=== PATIENT | female | born 1945 | race Caucasian/White ===

== ENCOUNTER → 2020-05-02 08:06 | Outpatient (BNVA) | payer MEDICARE, SELFPAY | PROVIDERS: Visit Provider Obstetrics & Gynecology | DX: Z01.419 Encounter for gynecological examination (general) (routine) without abnormal findings (principal); Z85.828 Personal history of other malignant neoplasm of skin; Z85.819 Personal history of malignant neoplasm of unspecified site of lip, oral cavity, and pharynx | CPT/HCPCS: 99203 ==

== ENCOUNTER 2021-11-20 08:12 | Outpatient (REF) | payer MEDICARE, SELFPAY ==
--- NOTE | ~2021-11-20 | XR_ITS ---
EXAMINATION: XR CHEST CLINICAL INFORMATION: Chest pain COMPARISON: None TECHNIQUE: 2 views of the chest were obtained. FINDINGS: The lungs are hyperinflated but clear of acute process. Heart size and pulmonary vascularity is normal. There is mild dextro scoliosis dorsal lumbar spine and moderate spondylosis dorsal spine. No lytic process seen. XR/XR chest 2V IMPRESSION: Hyperinflated lungs without acute process.
[2021-11-20 11:38] LABS: MANUAL DIFF FLAG NO
[2021-11-20 12:06] LABS: Basophils Absolute Auto 0.1 X10*3/uL (0.0-0.2); Basophils Percent Auto 0.8 % (0-2); Eosinophils Absolute Auto 0.8 X10*3/uL (0.0-0.4); Eosinophils Percent Auto 10.8 % (0-4); Imm Gran Abs Auto 0.01 X10*3/uL (0.00-0.03); Imm Gran Pct Auto 0.1 % (0.0-0.4); Lymphocytes Absolute Auto 2.2 X10*3/uL (1.2-4.9); Lymphocytes Percent Auto 29.3 % (20-40); Mean Corpuscular HGB Conc 32.5 g/dl (31.0-35.0); Mean Corpuscular Hemoglobin 32.3 pg (27.0-33.0); Mean Corpuscular Volume 99.3 fL (80.0-98.0); Mean Platelet Volume 9.9 fL (9.4-12.3); Monocytes Absolute Auto 0.5 X10*3/uL (0.1-1.2); Monocytes Percent Auto 6.7 % (2-11); Neutrophils Absolute Auto 3.9 x10*3/uL (2.0-8.3); Neutrophils Percent Auto 52.3 % (45-73); Platelet Count 297 X10*3/uL (160-400); Red Blood Count 4.03 X10*6/uL (4.20-5.50); White Blood Count 7.5 X10*3/uL (4.8-10.8)
[2021-11-20 12:29] LABS: Appearance Urine CLEAR; Color Urine YELLOW; Glucose Urine UA NEG (NEG); Leukocyte Esterase Urine NEG (NEG); Nitrite Urine NEG (NEG); PH 6.5 (5.0-8.0); UACC Culture Trigger NO; Urine Blood TRACE (NEG); Urine Ketones NEG (NEG); Urine Protein NEG (NEG-TRACE)
[2021-11-20 12:40] LABS: Alanine Aminotransferase 16 U/L (0-31); Albumin Level 4.2 g/dL (3.5-5.0); Alkaline Phosphatase 76 U/L (39-117); Anion Gap 10 (12-20); Aspartate Amino Transferase 23 U/L (5-31); Bilirubin Total 0.7 mg/dL (0.0-1.0); Blood Urea Nitrogen 15 mg/dL (9-16); Carbon Dioxide 27 mmol/L (22-29); Chloride 102 mmol/L (96-108); Cholesterol 183 mg/dL; Estimated Glomerular Filt Rate > 60; Glucose Fasting 99 mg/dL (60-99); HDL Cholesterol 76 mg/dL; LDL Cholesterol Calculated 94 mg/dl; Potassium 4.1 mmol/L (3.3-5.1); Sodium 135 mmol/L (135-145); TSH reflex Free T4 1.54 uIU/mL (0.32-4.0); Total Protein 6.9 g/dL (6.5-8.0); Triglycerides 69 mg/dL; Vitamin D 25-OH Total 41.3 ng/mL (>30)
[2021-11-20 12:45] LABS: Folate > 20.0 ng/mL (> or = 4.0); Vitamin B12 916 pg/mL (200-900)
[2021-11-20 13:53] LABS: WBC Urine 0 /HPF (0-4)
== END 2021-11-20 08:13 | disposition home or self-care (01) ==
LOC: HO.HMGCLDS 08:12
PROVIDERS: Visit Provider Internal Medicine
DX: Z00.00 Encounter for general adult medical examination without abnormal findings (principal); R07.89 Other chest pain; E55.9 Vitamin D deficiency, unspecified; E53.8 Deficiency of other specified B group vitamins
CPT/HCPCS: 36415; 71046; 80053; 80061; 81001; 81003; 82306; 82607; 82746; 84443; 85025

== ENCOUNTER 2022-02-13 14:36 | Outpatient (REF) | payer MEDICARE, SELFPAY ==
--- NOTE | 2022-02-13 17:15 | PFT_ITS ---
INDICATION: Chest pain. SPIROMETRY: FEV1 to FVC is 56% with an FEV1 of 1.43 L, which is 69% predicted; an FVC of 2.58 L, which is 93% predicted. Post bronchodilators, there was improvement of the FEV1 by 13%. The maximum voluntary ventilation 51% predicted. LUNG VOLUMES: Total lung capacity 94% predicted. DIFFUSION CAPACITY: DLCO 58% predicted. COMPARISONS: None. INTERPRETATION: There is an obstructive ventilatory defect consistent with moderate COPD. The patient did have a significant response to bronchodilators noted and also has significant small airways disease. There is some moderate decrease in maximum voluntary ventilation, which could be secondary to deconditioning. Lung volumes are within normal limits, and the patient does have a moderate diffusion impairment secondary to emphysema and all the parenchymal lung conditions should be considered. Clinical correlation warranted. MD JACQUI Sagastume/MODL / [id number]
== END 2022-02-13 14:37 | disposition home or self-care (01) ==
LOC: HO.RESP 14:36
PROVIDERS: PCP Internal Medicine; Visit Provider Internal Medicine
DX: R07.89 Other chest pain (principal); R06.00 Dyspnea, unspecified
CPT/HCPCS: 94060; 94727; 94729

== ENCOUNTER → 2022-12-18 13:27 | Outpatient (BNVA) | payer MEDICARE, SELFPAY | PROVIDERS: PCP Internal Medicine; Visit Provider Internal Medicine | DX: Z12.11 Encounter for screening for malignant neoplasm of colon (principal) | CPT/HCPCS: 99202 ==

== ENCOUNTER 2022-12-31 11:12 | Outpatient (REF) | payer MEDICARE, SELFPAY ==
--- NOTE | ~2022-12-31 | XR_ITS ---
EXAMINATION: XR SHOULDER, RIGHT CLINICAL INFORMATION: Pain in the right shoulder COMPARISON: None available. TECHNIQUE: AP external rotation, Grashey, scapular Y, and axillary views of the right shoulder. FINDINGS: The bones and soft tissues are normal. No fracture. Glenohumeral and acromioclavicular alignment is anatomic with normal joint space. No abnormal soft tissue calcifications. XR/XR shoulder RT min 2V IMPRESSION: Normal right shoulder.
== END 2022-12-31 11:13 | disposition home or self-care (01) ==
LOC: HO.HMGCX 11:12
PROVIDERS: PCP Internal Medicine; Visit Provider Internal Medicine
DX: M25.511 Pain in right shoulder (principal)
CPT/HCPCS: 73030

== ENCOUNTER 2023-03-12 08:02 | Outpatient (AMB) | payer MEDICARE, SELFPAY ==
--- NOTE | 2023-03-12 08:21 | AM.OFFWIN_ITS ---
Intake Vital Signs 03/12/23 08:24 Weight 100 lb BP 120/80 Blood Pressure Location Rt brachial Position Sitting Pulse 65 Pulse Source Pulse Oximeter Pulse Oximetry (%) 95 Oxygen Delivery Method Room Air Intake Visit Reasons: EST/right shoulder pain Intake Note: Patient here for right shoulder and arm pain. she states her pcp ordered an xray which showed possible arthritis. she has been taking a lot of ibuprofen. Patient Tobacco Use Status: Never used Tobacco Allergies Seasonal Allergies Allergy (Mild, Verified 03/12/23 08:51) Unknown Medication List - Last Reconciled 03/12/23 by Garfield Curtis MD albuterol sulfate 90 mcg/actuation 2 puffs inhalation Q6H PRN kulylkk-tzuyewveqezrv-hzixtvxk 250-250-65 mg (Excedrin Migraine) 2 tabs PO Q6H PRN cyclobenzaprine 5 mg PO BEDTIME 7 days fluticasone propionate 50 mcg/actuation 2 sprays intranasal DAILY PRN melatonin 3 mg PO BEDTIME PRN zolpidem 10 mg PO BEDTIME PRN 10 days Do you need a note to return to daycare/school/sports/work: No HPI EST/right shoulder pain HPI Details 77-year-old female presents to the office for a sick visit. Patient is could having right shoulder pain. She was seen 3 months ago for neck pain and x-rays had shown arthritis. Pain symptoms have restarted in the past week. She did not re-injure or fall. Pain is limited to the right side of the neck, shoulder and upper arm. Morning stiffness present. She has been taking tssb-nfp-zkvrnql NSAIDs with minimal relief. [facility] Medical History Allergic rhinitis COPD (chronic obstructive pulmonary disease) GERD (gastroesophageal reflux disease) History of mouth cancer History of skin cancer Hx of ovarian cyst Insomnia Surgical History History of colonoscopy (~05/07/08) Hx of ovarian cystectomy Status post surgical removal of malignant neoplasm of skin Family History Father HTN (hypertension) Sister HTN (hypertension) Social History Housing: Apartment Alcohol intake: never Patient Tobacco Use Status: Never used Tobacco e-Cigarette/Vaping Use: Never Used Second Hand Smoke Exposure: Yes service: No Current occupational status: retired Cognitive needs: No Hearing needs: No Vision needs: No Female Reproductive History Menstrual Age of Menarche: 13 Physical Exam Vital Signs: Last Vital Signs Pulse 65 03/12/23 08:24 BP 120/80 03/12/23 08:24 Pulse Ox 95 03/12/23 08:24 Oxygen Delivery Method Room Air 03/12/23 08:24 Const General: cooperative and healthy appearing Nutritional Appearance: well nourished Orientation/consciousness: patient oriented x3 Limitations: no limitations HEENT Head: Yes normal to inspection Eyes General: appearance normal, both eyes and all related structures Neck Neck: Yes normal visual inspection Chest Chest palpation & inspection: normal palpation of entire chest wall Resp Effort & Inspection: normal respiratory effort Neuro General: patient oriented x3 Extrem Other: Right shoulder: Full range of motion. Flexion, extension, internal and external rotation, adduction and abduction of the arm at the shoulder level was complete with no pain. Assessment & Plan Assessment & Plan (1) Osteoarthritis of right shoulder: Code(s): M19.011 - Primary osteoarthritis, right shoulder Plan: Meloxicam added to the regimen. Patient was advised physical therapy. If symptoms do not improve to follow-up here. Coding Level of Care Code Est Pt Level 4 (08432) Diagnoses Osteoarthritis of right shoulder M19.011
[2023-03-12 08:24] VITALS: BP 120/80; PULSE 65; O2SAT 95
== END 2023-03-12 09:56 | disposition home or self-care (01) ==
PROVIDERS: PCP Internal Medicine; Visit Provider Internal Medicine
DX: M19.011 Primary osteoarthritis, right shoulder (principal)
CPT/HCPCS: 99214

== ENCOUNTER 2023-04-15 12:50 | Outpatient (AMB) | payer MEDICARE, SELFPAY ==
[2023-04-15 12:51] VITALS: BP 120/82; PULSE 66; O2SAT 98; BMI 17.9
--- NOTE | 2023-04-15 12:51 | MHC.PC.OV ---
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 Accompanied by: Self / Same As Patient Allergies Seasonal Allergies Allergy (Mild, Verified 04/15/23 13:25) Unknown Medication List - Last Reconciled 04/15/23 by Ascencion Stiles MD albuterol sulfate 90 mcg/actuation 2 puffs inhalation Q6H PRN pgbhvxk-xbxuhcvyuxymg-hbegexqk 250-250-65 mg (Excedrin Migraine) 2 tabs PO Q6H PRN cyclobenzaprine 5 mg PO BEDTIME 7 days fluticasone propionate 50 mcg/actuation 2 sprays intranasal DAILY PRN melatonin 12 mg PO BEDTIME PRN meloxicam 15 mg PO DAILY PRN zolpidem 10 mg PO BEDTIME PRN 10 days Tobacco use date assessed: 04/15/23 Fall risk assessment: No Falls in past year Last assessed Fall Risk: 04/15/23 Dental Screening Dental Screen Date: 04/15/23 Did you have a dental visit in the last 12 months?: Yes Did you have a dental problem in the last 6 months where you did not have access to dental care?: No Was dental information given to patient?: Patient has dentist HPI 6 MONTH F/U HPI Details Patient comes in today for her follow up visit States that she was experiencing recurrent right-sided neck pain and right shoulder pain for the past few weeks Went to the walk-in clinic last month for the same complaint and she was prescribed some Meloxicam, which she states helped somewhat States that her right shoulder / neck pain has been slowly improving and she has not had any flare up of her symptoms at all today and is hoping that whatever was causing her shoulder and neck symptoms has finally subsided States that she feels okay otherwise Still has trouble sleeping at night but her current Rx help - needs her Zolpidem Rx refilled Would also like to get Rx for Polytrim Abx eyedrops - states that she starts using this right away as soon as she has problems with her eyes and this tends to help keep her eye symptoms from progressing She denies any headaches or dizziness Denies any chest pains, no SOB No nausea/vomiting, no abdominal pain No change in bowel habits noted Has not done any of her follow up labs prior to her appt today [facility] Medical History COPD (chronic obstructive pulmonary disease) Insomnia Allergic rhinitis GERD (gastroesophageal reflux disease) History of skin cancer History of mouth cancer Hx of ovarian cyst Surgical History History of colonoscopy (~05/07/08) Status post surgical removal of malignant neoplasm of skin Hx of ovarian cystectomy Family History Father HTN (hypertension) Sister HTN (hypertension) Social History Housing: Apartment Alcohol intake: never Patient Tobacco Use Status: Never used Tobacco e-Cigarette/Vaping Use: Never Used Second Hand Smoke Exposure: Yes service: No Current occupational status: retired Cognitive needs: No Hearing needs: No Vision needs: No Female Reproductive History Menstrual Age of Menarche: 13 Questionnaire PHQ-9 Over the last 2 weeks, how often have you been bothered by any of the following problems? 1. Little interest or pleasure in doing things: not at all 2. Feeling down, depressed, or hopeless: not at all 3. Trouble falling or staying asleep, or sleeping too much: not at all 4. Feeling tired or having little energy: not at all 5. Poor appetite or overeating: not at all 6. Feeling bad about yourself - or that you are a failure or have let yourself or your family down: not at all 7. Trouble concentrating on things, such as reading the newspaper or watching television: not at all 8. Moving or speaking so slowly that other people could have noticed. Or the opposite - being so fidgety or restless that you have been moving around a lot more than usual: not at all 9. Thoughts that you would be better off or of hurting yourself in some way: not at all Total score: 0 Depression Screening Interpretation: Negative 87149 - PHQ-9 Billing: Yes Source: Developed by Drs. Trenton L. Frances Gomez Kurt Kroenke and colleagues, with an educational margareth from [employer]. Thrive Questionnaire Date Thrive assessed: 04/15/23 I am a: Patient What is your living situation today?: I have a steady place to live Within the past 12 months, did the food you bought not last and you didn't have the money to get more?: Never true Within the past 12 months, did you worry whether your food would run out before you got money to buy more?: Never true Do you have trouble paying for medicines?: No Do you have trouble getting transportation to medical appointments?: No Do you have trouble paying your heating and electricity bill?: No Do you have trouble taking care of your child, family member or friend?: No Do you have trouble with day-to-day activities such as bathing, preparing meals, shopping, managing finances, etc.?: No Are you currently unemployed and looking for a job?: No Are you interested in more education?: No Please select the resources that you would like help with: None Currently or been in a relationship where the following occur: no concerns reported AUDIT C Alcohol Use Questionnaire (AUDIT-C) 1. How often do you have a drink containing alcohol?: Never 3. How often do you have six or more drinks on one occasion?: Never Total Score: 0 Score Reviewed/Action Taken: Yes CARINA-7 AMB Questionnaire CARINA-7 Date CARINA - 7 assessed: 04/15/23 Feeling nervous, anxious, or on edge: 0 = Not at all Not being able to stop or control worryin = Not at all Worrying too much about different things: 0 = Not at all Trouble relaxin = Not at all Being so restless that it is hard to sit still: 0 = Not at all Becoming easily annoyed or irritable: 0 = Not at all Feeling afraid as if something awful might happen: 0 = Not at all Total CARINA-7 score (0-4 normal; 5-9 mild; 10-14 moderate; 15-21 severe): 0 Source: Developed by Drs. Trenton Gomez, Sergo Castillo and colleagues, with an educational margareth from [employer]. Review of Systems Const Denies chills, Reports difficulty sleeping (at times), Denies fatigue, Denies fever(s) and Denies headache(s) ENT Denies dysphagia, Denies dizziness, Denies otalgia, Denies headache(s), Denies neck pain (recent right-sided neck pain appears to have resolved), Denies odynophagia and Denies sore throat Card Denies chest pain, Denies palpitations and Denies dyspnea Resp Denies cough and Denies dyspnea GI Denies abdominal pain, Denies constipation, Denies dysphagia, Denies heartburn, Denies diarrhea, Denies nausea, Denies odynophagia and Denies vomiting Denies difficulty voiding, Denies nocturia and Denies dysuria Musc Denies arthralgias (recent right shoulder pain also appears to have resolved) and Denies neck pain (recent right-sided neck pain appears to have resolved) Skin/Breast Denies rash Neuro Denies dizziness and Denies headache(s) Endo Denies fatigue and Denies palpitations Physical exam (Primary Care) Vital Signs: Last Vital Signs Pulse 66 04/15/23 12:51 BP 120/82 04/15/23 12:51 Pulse Ox 98 04/15/23 12:51 Oxygen Delivery Method Room Air 04/15/23 12:51 BMI result Body Mass Index 17.9 Tobacco/Smoking Status: Tobacco use Status Tobacco use date assessed 04/15/23 04/15/23 12:59 Patient Tobacco Use Status Never used Tobacco 04/15/23 12:59 e-Cigarette/Vaping Use Never Used 04/15/23 12:59 PHQ-9: PHQ-9 Score PHQ-9: Total score 0 04/15/23 12:59 Depression Screening Interpretation: Negative Thrive Assessment: Date of Thrive Assessment Date Thrive assessed 04/15/23 04/15/23 12:59 Currently or been in a relationship where the following occur: no concerns reported Const General: no acute distress and alert HENMT Ears: TM's normal bilaterally and EAC's normal Throat: Yes posterior oropharynx normal and Yes tonsils normal (no TP congestion) Neck Neck: Yes no lymphadenopathy and Yes supple Resp Auscultation: clear to auscultation bilaterally, no rales and no wheezes Cardio Rate: regular rate Rhythm: regular rhythm Heart sounds: Murmur heart sound present systolic blowing, soft, II/ and at the apex GI Palpation (GI): Soft to palpation and nontender Skin Rashes: no rashes Extrem General: Yes no clubbing, cyanosis or edema Right upper extremity: shoulder/upper arm Details: normal ROM; no tenderness Assessment and Plan Assessment & Plan (1) COPD (chronic obstructive pulmonary disease): Code(s): J44.9 - Chronic obstructive pulmonary disease, unspecified Qualifiers: COPD type: unspecified COPD Qualified Code(s): J44.9 - Chronic obstructive pulmonary disease, unspecified Plan: Chest x-rays done in October 2021 revealed hyperinflated lungs without acute process PFTs done last year revealed findings of moderate COPD with a restrictive pattern Continue Albuterol HFA 2 inhalations every 6 hours PRN for now Patient's activity / exercise tolerance appear to be appropriate for her age and she reports that she only has to use her inhaler as needed and not everyday; does not appear to need any controller Rx at this time (2) Headache: Code(s): R51.9 - Headache, unspecified Qualifiers: Headache type: unspecified Headache chronicity pattern: unspecified pattern Intractability: not intractable Qualified Code(s): R51.9 - Headache, unspecified Plan: Stable lately - possible migraine headaches; she is just taking OTC Excedrin PRN with relief Reinforced avoidance of any potential migraine triggers To consider prophylactic Tx if headaches start to occur more often (3) Cardiac murmur: Code(s): R01.1 - Cardiac murmur, unspecified Plan: She presently has a soft, blowing systolic murmur heard loudest at the apex - possibly due to MR or TR Patient is currently asymptomatic Will send her for echocardiogram for further evaluation at her next follow up appt in the spring (4) Allergic rhinitis: Code(s): J30.9 - Allergic rhinitis, unspecified Qualifiers: Allergic rhinitis trigger: unspecified Allergic rhinitis seasonality: unspecified Qualified Code(s): J30.9 - Allergic rhinitis, unspecified Plan: Uses OTC Fluticasone nasal spray PRN Is still not interested in allergy testing or referral to communication specialist at present States that eliminating dairy products from her diet recently seems to have helped a lot with her allergies May take OTC Loratadine 10 mg QD PRN for additional symptomatic relief (5) GERD (gastroesophageal reflux disease): Code(s): K21.9 - Gastro-esophageal reflux disease without esophagitis Qualifiers: Esophagitis presence: without esophagitis Qualified Code(s): K21.9 - Gastro-esophageal reflux disease without esophagitis Plan: Reinforced dietary restrictions in GERD Is currently taking OTC Gaviscon TID with meals with relief and states that she is happy with continuing current Rx for now To consider referral to GI and EGD if symptoms persist or worsen (6) Right shoulder pain: Code(s): M25.511 - Pain in right shoulder Qualifiers: Chronicity: unspecified Qualified Code(s): M25.511 - Pain in right shoulder Plan: Symptoms appear to have resolved today; was likely due to tendinitis/bursitis vs. muscle spasms Advised that she can take OTC Ibuprofen or Meloxicam PRN If symptoms recur, will consider orthopedic referral (7) Vitamin B12 deficiency (dietary) anemia: Comment: Patient is 90% vegetarian - eats chicken and turkey but no red meats Code(s): D51.8 - Other vitamin B12 deficiency anemias Plan: (+) Hx of anemia and B12 deficiency and she currently takes OTC Vitamin B12 tablets daily - is a vegetarian Her CBC done n October 2021 was normal - H/H were both normal Was not able to get her follow up labs done prior to her appt today Will recheck her labs in 6 months for follow up (8) Insomnia: Code(s): G47.00 - Insomnia, unspecified Qualifiers: Insomnia type: unspecified Qualified Code(s): G47.00 - Insomnia, unspecified Plan: Sleep hygiene reinforced Continue Zolpidem 10 mg Q HS PRN - Rx refilled Advised that she can also continue taking OTC Melatonin with her Zolpidem as needed Plan Follow up in 6 months Orders: Orders Comprehensive [place]. Panel Fast 6 Months E78.00 - Pure hypercholesterolemia, unspecified UA CC w/rflx Micro + Cult 6 Months R30.0 - Dysuria Lipid Panel 6 Months E78.00 - Pure hypercholesterolemia, unspecified Complete Blood Count Auto Diff 6 Months I10 - Essential (primary) hypertension TSH reflex Free T4 6 Months E78.00 - Pure hypercholesterolemia, unspecified Vitamin D 25-OH Total 6 Months E55.9 - Vitamin D deficiency, unspecified Medications: New polymyxin B sulf-trimethoprim 10,000 unit- 1 mg/mL (Polytrim) while awake; do not exceed 6 doses in 24 hours 1 drp ophthalmic (eye) Q3H 7 days 10 mL 0RF Refilled zolpidem 10 mg PO BEDTIME 10 days PRN 10 tabs 1RF insomnia Coding Level of Care Code Est Pt Level 4 (32703) Diagnoses Chronic obstructive pulmonary disease, unspecified COPD type J44.9 COPD type: unspecified COPD Nonintractable headache, unspecified chronicity pattern, unspecified headache type R51.9 Headache type: unspecified Headache chronicity pattern: unspecified pattern Intractability: not intractable Cardiac murmur R01.1 Allergic rhinitis, unspecified seasonality, unspecified trigger J30.9 Allergic rhinitis trigger: unspecified Allergic rhinitis seasonality: unspecified Gastroesophageal reflux disease without esophagitis K21.9 Esophagitis presence: without esophagitis Right shoulder pain, unspecified chronicity M25.511 Chronicity: unspecified Vitamin B12 deficiency (dietary) anemia D51.8 Insomnia, unspecified type G47.00 Insomnia type: unspecified
== END 2023-04-15 13:34 | disposition home or self-care (01) ==
PROVIDERS: PCP Internal Medicine; Visit Provider Internal Medicine
DX: J44.9 Chronic obstructive pulmonary disease, unspecified (principal); K21.9 Gastro-esophageal reflux disease without esophagitis; R51.9 Headache, unspecified; R01.1 Cardiac murmur, unspecified; J30.9 Allergic rhinitis, unspecified; M25.511 Pain in right shoulder; D51.8 Other vitamin B12 deficiency anemias; G47.00 Insomnia, unspecified
CPT/HCPCS: 99214

== ENCOUNTER 2023-05-15 10:00 | Outpatient (RCR) | payer MEDICARE, SELFPAY ==
--- NOTE | 2023-03-26 10:02 | MHC.PT.EP ---
[facility] [place] Office [place] Office [place] Office [address] [phone] F: [phone] F: [phone] F: [phone] F: [phone] Physical Therapy Plan of Care Date of Evaluation: Date of Surgery: Diagnosis: OA of the R shoulder Assessment: Patient is a 77 year old L handed female who presents with s/s consistent with R shoulder pain. She does not work but does enjoy staying active. Patient past medical history includes cancer, though she is cancer free at this time. Current impairments include pain, posture, ROM, strength, activity tolerance and functional mobility. Functional limitations include decreased ability to sleep, reach, lift, carry, push and pull. Patient is motivated with good rehab potential. Skilled PT will address impairments and functional limitations in order to achieve goals. 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 Manual therapy to restore motion and function. Therapeutic exercise to improve strength and flexibility. Neuromuscular re-education for posture and balance. Therapeutic activities to return to functional activities of daily living. Electronically signed by: Van Waters PT Please sign and return to therapist. Thank you for your referral.
--- NOTE | 2024-05-06 08:44 | MHC.PT.DC ---
[facility] Office [place] Office [place] Office [address] [phone] F: [phone] F: [phone] F: [phone] F: [phone] Physical Therapy Discharge Report Diagnosis: OA of the R shoulder Date of Surgery: Date of Evaluation: 03/26/23 Date of Discharge: 06/21/23 Treatments to Date: 3 Cancellations to Date: No Shows to Date: Discharge Status: Achieved Goals Independent with HEP Discharge Summary: 05/15/23: pt pain free. we reviewed all HEP exercises. all goals met or progressed towards. SPADI 0/130. I with HEP. Full AROM. Improved postural awareness. Strength 4-/5 grossly. it is appropriate to d/c to HEP at this time. 05/01/23: pt progressing well with skilled PT. no adverse reactions. we updated HEP with all necessary bands. 04/17/23: pt has been progressing well with full pain free AROM. fatigues quick with strength ex. progress as tolerated NV. 04/03/23: we used gentler ROM for warming up today. good response after heat. CP to finish. assess response and progress accordingly. Patient is a 77 year old L handed female who presents with s/s consistent with R shoulder pain. She does not work but does enjoy staying active. Patient past medical history includes cancer, though she is cancer free at this time. Current impairments include pain, posture, ROM, strength, activity tolerance and functional mobility. Functional limitations include decreased ability to sleep, reach, lift, carry, push and pull. Patient is motivated with good rehab potential. Skilled PT will address impairments and functional limitations in order to achieve goals. Electronically signed by: Van Waters, PT Please sign and return to therapist. Thank you for your referral.
== END 2024-05-06 08:45 | disposition home or self-care (01) ==
LOC: HO.PTCHIC 10:00
PROVIDERS: PCP Internal Medicine; Visit Provider Internal Medicine
DX: M19.011 Primary osteoarthritis, right shoulder (principal)
CPT/HCPCS: 97110; 97162

== ENCOUNTER 2023-09-03 13:33 | Outpatient (AMB) | payer MEDICARE, SELFPAY ==
--- NOTE | 2023-09-03 13:34 | A.OFFPC_ITS ---
Vital Signs 09/03/23 13:35 Height 5 ft 3 in Weight 96 lb BMI 17.0 BP 130/82 Blood Pressure Location Lt brachial Position Sitting Pulse 59 Pulse Source Pulse Oximeter Pulse Oximetry (%) 94 Oxygen Delivery Method Room Air Intake Visit Reasons: Dr. 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 Accompanied by: Self / Same As Patient Allergies Seasonal Allergies Allergy (Mild, Verified 09/03/23 14:13) Unknown Medication List - Last Reconciled 09/03/23 by Ascencion Stiles MD albuterol sulfate 90 mcg/actuation 2 puffs inhalation Q6H PRN [id number]-qyqgudpsqcvvv-[id number] 250-250-65 mg (Excedrin Migraine) 2 tabs PO Q6H PRN cyclobenzaprine 5 mg PO BEDTIME 7 days fluticasone propionate 50 mcg/actuation 2 sprays intranasal DAILY PRN melatonin 12 mg PO BEDTIME PRN meloxicam 15 mg PO DAILY PRN zolpidem 10 mg PO BEDTIME PRN 10 days Tobacco use date assessed: 09/03/23 Fall risk assessment: No Falls in past year Last assessed Fall Risk: 09/03/23 Dental Screening Dental Screen Date: 09/03/23 Did you have a dental visit in the last 12 months?: Yes Did you have a dental problem in the last 6 months where you did not have access to dental care?: No Was dental information given to patient?: Patient has dentist HPI Dr. Vizcarra/Left eye 2-12/Right eye 3-14 HPI Details Patient comes in today at the request of Dr. Jt Leroy for a preoperative examination for clearance for surgery She is scheduled for cataract extraction/phacoemulsification with IOL of the left eye under MAC on 09/09/2023, followed by the same procedure on the right eye a month later on 10/10/2023 Patient states that aside from her diminished visual acuity, she feels well She denies any headaches or dizziness Denies any chest pains, no SOB No nausea/vomiting, no abdominal pain No change in bowel habits noted PFSH Medical History COPD (chronic obstructive pulmonary disease) Insomnia Allergic rhinitis GERD (gastroesophageal reflux disease) History of skin cancer History of mouth cancer Hx of ovarian cyst Surgical History History of colonoscopy (~05/07/08) Status post surgical removal of malignant neoplasm of skin Hx of ovarian cystectomy Family History Father HTN (hypertension) Sister HTN (hypertension) Social History Housing: Apartment Alcohol intake: never Patient Tobacco Use Status: Never used Tobacco e-Cigarette/Vaping Use: Never Used Second Hand Smoke Exposure: Yes service: No Current occupational status: retired Cognitive needs: No Hearing needs: No Vision needs: No Female Reproductive History Menstrual Age of Menarche: 13 Questionnaire PHQ-9 Over the last 2 weeks, how often have you been bothered by any of the following problems? 1. Little interest or pleasure in doing things: not at all 2. Feeling down, depressed, or hopeless: not at all 3. Trouble falling or staying asleep, or sleeping too much: not at all 4. Feeling tired or having little energy: not at all 5. Poor appetite or overeating: not at all 6. Feeling bad about yourself - or that you are a failure or have let yourself or your family down: not at all 7. Trouble concentrating on things, such as reading the newspaper or watching television: not at all 8. Moving or speaking so slowly that other people could have noticed. Or the opposite - being so fidgety or restless that you have been moving around a lot more than usual: not at all 9. Thoughts that you would be better off or of hurting yourself in some way: not at all Total score: 0 Depression Screening Interpretation: Negative Depression Screening Done: Yes 52665 - PHQ-9 Billing: Yes Source: Developed by Drs. Trenton Gomez, Frances Tang, Sergo Colby and colleagues, with an educational margareth from [employer]. Thrive Questionnaire Date Thrive assessed: 09/03/23 I am a: Patient What is your living situation today?: I have a steady place to live Within the past 12 months, did the food you bought not last and you didn't have the money to get more?: Never true Within the past 12 months, did you worry whether your food would run out before you got money to buy more?: Never true Do you have trouble paying for medicines?: No Do you have trouble getting transportation to medical appointments?: No Do you have trouble paying your heating and electricity bill?: No Do you have trouble taking care of your child, family member or friend?: No Do you have trouble with day-to-day activities such as bathing, preparing meals, shopping, managing finances, etc.?: No Are you currently unemployed and looking for a job?: No Are you interested in more education?: No Please select the resources that you would like help with: None Currently or been in a relationship where the following occur: no concerns reported THRIVE Score: 0 AUDIT C Alcohol Use Questionnaire (AUDIT-C) 1. How often do you have a drink containing alcohol?: Never 3. How often do you have six or more drinks on one occasion?: Never Total Score: 0 Score Reviewed/Action Taken: Yes CARINA-7 AMB Questionnaire CARINA-7 Date CARINA - 7 assessed: 09/03/23 Feeling nervous, anxious, or on edge: 0 = Not at all Not being able to stop or control worryin = Not at all Worrying too much about different things: 0 = Not at all Trouble relaxin = Not at all Being so restless that it is hard to sit still: 0 = Not at all Becoming easily annoyed or irritable: 0 = Not at all Feeling afraid as if something awful might happen: 0 = Not at all Total CARINA-7 score (0-4 normal; 5-9 mild; 10-14 moderate; 15-21 severe): 0 Source: Developed by Drs. Trenton Gomez, Frances Tang, Sergo Colby and colleagues, with an educational margareth from [employer]. Review of Systems Const Denies chills, Denies fatigue, Denies fever(s) and Denies headache(s) Eyes Reports blurry vision ENT Denies dysphagia, Denies dizziness, Denies headache(s), Denies neck pain, Denies odynophagia and Denies sore throat Card Denies chest pain, Denies palpitations and Denies dyspnea Resp Denies cough, Denies dyspnea and Denies wheezing GI Denies abdominal pain, Denies constipation, Denies dysphagia, Denies heartburn, Denies diarrhea, Denies nausea, Denies odynophagia and Denies vomiting Denies difficulty voiding, Denies nocturia and Denies dysuria Musc Denies neck pain Skin/Breast Denies rash Neuro Denies dizziness and Denies headache(s) Endo Denies fatigue and Denies palpitations Aller/Immun Denies wheezing Physical exam (Primary Care) Vital Signs: Last Vital Signs Pulse 59 09/03/23 13:35 BP 130/82 09/03/23 13:35 Pulse Ox 94 09/03/23 13:35 Oxygen Delivery Method Room Air 09/03/23 13:35 BMI result Body Mass Index 17.0 Tobacco/Smoking Status: Tobacco use Status Tobacco use date assessed 09/03/23 09/03/23 13:37 Patient Tobacco Use Status Never used Tobacco 09/03/23 13:37 e-Cigarette/Vaping Use Never Used 09/03/23 13:37 PHQ-9: PHQ-9 Score PHQ-9: Total score 0 09/03/23 13:44 Depression Screening Interpretation: Negative Thrive Assessment: Date of Thrive Assessment Date Thrive assessed 09/03/23 09/03/23 13:37 Currently or been in a relationship where the following occur: no concerns reported Const General: no acute distress and alert Neck Neck: Yes no lymphadenopathy and Yes supple Resp Auscultation: clear to auscultation bilaterally, no rales and no wheezes Cardio Rate: regular rate Rhythm: regular rhythm Heart sounds: Murmur heart sound present systolic blowing, soft and at the apex GI Palpation (GI): Soft to palpation, nontender and No hepatosplenomegaly present Extrem General: Yes no clubbing, cyanosis or edema Assessment and Plan Assessment & Plan (1) Preoperative examination: Code(s): Z01.818 - Encounter for other preprocedural examination Plan: Patient presents with acceptable risks for planned low cardiac-risk procedure She currently appears medically optimized with no contraindications for her upcoming surgeries (2) Cataracts, bilateral: Code(s): H26.9 - Unspecified cataract Qualifiers: Cataract type: age-related Age-related cataract type: unspecified Qualified Code(s): H25.9 - Unspecified age-related cataract Plan: She is scheduled for cataract extraction/phacoemulsification with IOL of the left eye under MAC on 09/09/2023, followed by the same procedure on the right eye a month later on 10/10/[address] Jt Leroy (3) COPD (chronic obstructive pulmonary disease): Code(s): J44.9 - Chronic obstructive pulmonary disease, unspecified Qualifiers: COPD type: unspecified COPD Qualified Code(s): J44.9 - Chronic obstructive pulmonary disease, unspecified Plan: Controlled/stable Chest x-rays done in October 2021 revealed hyperinflated lungs without acute process PFTs done on 02/13/2022 for further evaluation revealed findings of moderate COPD with a restrictive pattern Continue Albuterol HFA 1 to 2 inhalations every 6 hours PRN Patient's activity / exercise tolerance appear to be appropriate for her age and she reports that she only has to use her inhaler as needed and not everyday; she still does not appear to need any controller Rx at this time (4) Headache: Code(s): R51.9 - Headache, unspecified Qualifiers: Headache type: unspecified Headache chronicity pattern: unspecified pattern Intractability: not intractable Qualified Code(s): R51.9 - Headache, unspecified Plan: Stable - may be possibly migraine headaches States that she is just taking OTC Excedrin PRN with relief at this time Reinforced avoidance of potential migraine triggers Will consider prophylactic Tx if her headaches start to occur more often or progress (5) Cardiac murmur: Code(s): R01.1 - Cardiac murmur, unspecified Plan: She has a soft, blowing systolic murmur heard loudest at the apex - possibly due to MR or TR Patient is currently completely asymptomatic from a cardiac standpoint Will send her for echocardiogram for further evaluation at her next follow up appt in the spring (6) Allergic rhinitis: Code(s): J30.9 - Allergic rhinitis, unspecified Qualifiers: Allergic rhinitis trigger: unspecified Allergic rhinitis seasonality: unspecified Qualified Code(s): J30.9 - Allergic rhinitis, unspecified Plan: Patient uses OTC Fluticasone nasal spray PRN She is still not interested in allergy testing or 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 at present States that eliminating dairy products from her diet recently seems to have helped a lot with her allergies May take OTC Loratadine 10 mg QD PRN for additional symptom relief (7) GERD (gastroesophageal reflux disease): Code(s): K21.9 - Gastro-esophageal reflux disease without esophagitis Qualifiers: Esophagitis presence: without esophagitis Qualified Code(s): K21.9 - Gastro-esophageal reflux disease without esophagitis Plan: Reinforced dietary restrictions in GERD Is currently taking OTC Gaviscon TID with meals with relief and states that she is happy with continuing current Rx for now To consider referral to GI and EGD if symptoms persist or worsen (8) Vitamin B12 deficiency (dietary) anemia: Comment: Patient is 90% vegetarian - eats chicken and turkey but no red meats Code(s): D51.8 - Other vitamin B12 deficiency anemias Plan: (+) Hx of anemia and B12 deficiency and she currently takes OTC Vitamin B12 tablets daily - patient is a vegetarian Her CBC done n October 2021 was normal (H/H were both normal) and she has not been able to get her follow up labs done since Will recheck her labs in a couple of months for follow up - reminded her to get these done BEFORE she comes in for her next appt. (9) Insomnia: Code(s): G47.00 - Insomnia, unspecified Qualifiers: Insomnia type: unspecified Qualified Code(s): G47.00 - Insomnia, unspecified Plan: Sleep hygiene reinforced Continue Zolpidem 10 mg Q HS PRN Advised that she can also continue taking OTC Melatonin with her Zolpidem as needed Plan Follow up in a couple of months as scheduled Patient is presently medically optimized with no contraindications for surgery - she is medically cleared to undergo cataract surgeries on both eyes as scheduled Coding Level of Care Code Est Pt Level 3 (79300) Diagnoses Preoperative examination Z01.818 Age-related cataract of both eyes, unspecified age-related cataract type H25.9 Cataract type: age-related Age-related cataract type: unspecified Chronic obstructive pulmonary disease, unspecified COPD type J44.9 COPD type: unspecified COPD Nonintractable headache, unspecified chronicity pattern, unspecified headache type R51.9 Headache type: unspecified Headache chronicity pattern: unspecified pattern Intractability: not intractable Cardiac murmur R01.1 Allergic rhinitis, unspecified seasonality, unspecified trigger J30.9 Allergic rhinitis trigger: unspecified Allergic rhinitis seasonality: unspecified Gastroesophageal reflux disease without esophagitis K21.9 Esophagitis presence: without esophagitis Vitamin B12 deficiency (dietary) anemia D51.8 Insomnia, unspecified type G47.00 Insomnia type: unspecified
[2023-09-03 13:35] VITALS: BP 130/82; PULSE 59; O2SAT 94; BMI 17.0
== END 2023-09-03 14:27 | disposition home or self-care (01) ==
PROVIDERS: PCP Internal Medicine; Visit Provider Internal Medicine
DX: Z01.818 Encounter for other preprocedural examination (principal); H25.9 Unspecified age-related cataract; J44.9 Chronic obstructive pulmonary disease, unspecified; R51.9 Headache, unspecified; R01.1 Cardiac murmur, unspecified; J30.9 Allergic rhinitis, unspecified; K21.9 Gastro-esophageal reflux disease without esophagitis; D51.8 Other vitamin B12 deficiency anemias; G47.00 Insomnia, unspecified
CPT/HCPCS: 99213

== ENCOUNTER 2023-09-09 07:51 | Day surgery (SDC) | payer MEDICARE, SELFPAY ==
[2023-09-04 10:39] VITALS: BMI 17.0
--- NOTE | 2023-09-06 08:45 | P.CONAN_ITS ---
Documented by User: Sera Mauro NP 09/06/23 08:45 HPI - Anesthesia Eval Consult details Narrative: 78yo F for Left Cataract Extraction IOL Insertion PCP cleared No previous cataract on record REPLACED BY [facility] Active Problems Active Problems: All Active Problems (Updated 09/03/23 @ 14:28 by Ascencion Stiles MD) Cataracts, bilateral (Acute) Preoperative examination (Acute) Cardiac murmur (Acute) Osteoarthritis of right shoulder (Acute) Right shoulder pain (Acute) Torticollis, acute (Acute) Colon cancer screening (Acute) COPD (chronic obstructive pulmonary disease) (Acute) Dyspnea (Acute) Medicare annual wellness visit, subsequent (Acute) Vitamin B12 deficiency (dietary) anemia (Acute) Chest tightness (Acute) Insomnia (Acute) Allergic rhinitis (Acute) GERD (gastroesophageal reflux disease) (Acute) Headache (Acute) Past Medical History Medical History COPD (chronic obstructive pulmonary disease) Insomnia Allergic rhinitis GERD (gastroesophageal reflux disease) History of skin cancer History of mouth cancer Hx of ovarian cyst Family History Family History Father HTN (hypertension) Sister HTN (hypertension) Surgical History Surgical History History of colonoscopy (~05/07/08) Status post surgical removal of malignant neoplasm of skin Hx of ovarian cystectomy Social History Social History Housing: Apartment Alcohol intake: never Patient Tobacco Use Status: Never used Tobacco e-Cigarette/Vaping Use: Never Used Second Hand Smoke Exposure: Yes Advance Directives: No Advance Directives Information Provided: Yes Advance Directives on File: No Patient : No service: No Current occupational status: retired Cognitive needs: No Hearing needs: No Vision needs: No Meds Allergies Allergy/AdvReac Type Severity Reaction Status Date / Time Seasonal Allergies Allergy Mild Unknown Verified 09/09/23 08:58 Home Medications Medication Instructions Recorded Confirmed Last Taken Type albuterol sulfate 90 mcg/actuation 2 puff inhalation Q6H PRN 05/02/20 09/04/23 Unknown History aerosol inhaler Shortness Of Breath Or Wheezing gkbeigt-gzsznzldotxej-zgvvngxq 250 2 tab PO Q6H PRN Migraine Headache 08/01/21 09/04/23 Unknown History mg-250 mg-65 mg tablet (Excedrin Migraine) fluticasone propionate 50 2 spray intranasal DAILY PRN nasal 08/01/21 09/04/23 Unknown History mcg/actuation nasal congestion spray,suspension melatonin 3 mg capsule 12 mg PO BEDTIME PRN Insomnia 04/15/23 09/04/23 Unknown History Exam Height,Weight and Vital Signs: Height 5 ft 3 in Weight 43.545 kg Assessment and Plan Assessment Anesthesia Assessment: Chart Reviewed Documented by User: Mónica Younger MD 09/09/23 09:54 PMFSH Past Medical History Medical History COPD (chronic obstructive pulmonary disease) Insomnia Allergic rhinitis GERD (gastroesophageal reflux disease) History of skin cancer History of mouth cancer Hx of ovarian cyst Family History Family History Father HTN (hypertension) Sister HTN (hypertension) Surgical History Surgical History History of colonoscopy (~05/07/08) Status post surgical removal of malignant neoplasm of skin Hx of ovarian cystectomy History of Problems with Anesthesia: No Social History Social History Housing: Apartment Alcohol intake: never Patient Tobacco Use Status: Never used Tobacco e-Cigarette/Vaping Use: Never Used Second Hand Smoke Exposure: Yes Advance Directives: No Advance Directives Information Provided: Yes Advance Directives on File: No Patient : No service: No Current occupational status: retired Cognitive needs: No Hearing needs: No Vision needs: No Meds Allergies Allergy/AdvReac Type Severity Reaction Status Date / Time Seasonal Allergies Allergy Mild Unknown Verified 09/09/23 08:58 Home Medications Medication Instructions Recorded Confirmed Last Taken Type albuterol sulfate 90 mcg/actuation 2 puff inhalation Q6H PRN 05/02/20 09/04/23 Unknown History aerosol inhaler Shortness Of Breath Or Wheezing soychsd-pbrgwjlgckyzf-rbivgekv 250 2 tab PO Q6H PRN Migraine Headache 08/01/21 09/04/23 Unknown History mg-250 mg-65 mg tablet (Excedrin Migraine) fluticasone propionate 50 2 spray intranasal DAILY PRN nasal 08/01/21 09/04/23 Unknown History mcg/actuation nasal congestion spray,suspension melatonin 3 mg capsule 12 mg PO BEDTIME PRN Insomnia 04/15/23 09/04/23 Unknown History Exam Airway Mallampati Class: II TM Dist: >3cm Neck ROM: Full Loose/Missing/Broken Teeth: No Heart: RRR Lungs: CTA Assessment and Plan Assessment Anesthesia Assessment: Anesthesia Plan Discussed Final Anesthetic Review History of Problems with Anesthesia: No NPO: Yes ASA Class: III Final Preanesthetic Review: Meds/Allgs Chart Reviewed, Consent Obtained/Reviewed and Anes Risks/Benef Reviewed Patient Risk: Intermediate Procedure Risk: Low Anesthetic Plan Anesthetic Plan: MAC: Disposition: Standard PACU
[2023-09-09 08:51] VITALS: BP 148/70; PULSE 62; RESP 18; TEMP 36.2; O2SAT 96
[2023-09-09] MEDS: Tetracaine HCl/PF 0.5% Oph Sol 4 ML DROPS 1 DROP EYE-LEFT (09:05)
[2023-09-09] MEDS: Cyclopentolate 1 % Ophth Sol 2 ML DRPBTL 1 DROP EYE-LEFT ×3 (09:07→09:16)
[2023-09-09] MEDS: Tropicamide 1 % Ophth Sol 3 ML BTL 1 DROP EYE-LEFT ×3 (09:08→09:17)
[2023-09-09] MEDS: Lactated Ringers 500 ML 50 ML IV (09:09)
[2023-09-09] MEDS: Ketorolac Tromethamine 0.5% Op 5 ML DROPS 1 DROP EYE-LEFT ×3 (09:09→09:19)
[2023-09-09] MEDS: Phenylephrine HCL 2.5% Oph SoL 2 ML BOTTLE 1 DROP EYE-LEFT ×3 (09:10→09:20)
--- NOTE | 2023-09-09 10:30 | MHC.SHP ---
Pre-Procedural Eval Section A - 24 Hr Update-Section A only Date of Service: 09/09/23 The patient is an INPATIENT: No Changes since office visit: No Cold of Flu in the past 2 weeks, No New Medical Problems, No Changes in Medication and No Patient answered all questions The patient has been examined within 24 hours of the surgical procedure. The History & Physical has been completed within 30 days and I have reviewed it.: Yes Section B - Complete if H&P > 30 days Chief Complaint: Age-related nuclear cataract, left eye Allergies: Allergies Allergy/AdvReac Type Severity Reaction Status Date / Time Seasonal Allergies Allergy Mild Unknown Verified 09/09/23 08:58 Plan Diagnosis/Plan: Unchanged I have reviewed the history and physical and performed a pertinent physical examination on my patient. No changes have occurred unless specified. Time Spent With Patient Time: Total time managing care of this patient today ____ minutes.
--- NOTE | 2023-09-09 10:31 | HO.PNOPHT ---
Ophthalmology Procedure Procedure Date of Service: 09/09/23 Ophthalmology Lenses: Other (MA60 21.5) Procedure Notes: PREOPERATIVE DIAGNOSIS: Decreased visual acuity left eye secondary to cataract POSTOPERATIVE DIAGNOSIS: Same PROCEDURE: Left cataract extraction with intraocular lens insertion SURGEON: Jt Isabel M.D. ANESTHESIA: Topical/MAC ESTIMATED BLOOD LOSS: None COMPLICATIONS: None After obtaining informed consent, the patient was brought to the operation room suite and placed in the supine position. After adequate sedation per anesthesia, topical drops of Tetracaine were given to the left eye. The eye was then prepped and draped in the usual sterile fashion. The operating room microscope was then positioned over the operative eye and a lid speculum placed. A paracentesis was created. Viscoelastic was then instilled into the anterior chamber. A three plane incision was then created temporally, utilizing a 2.85 mm keratome. Capsulotomy forceps were then utilized to create a circular tear capsulotomy. Hydrodissection and hydrodelineation were carried out until adequate mobilization of the nucleus occurred. Phacoemulsification was then utilized to remove the dense central nucleus followed by removal of the cortical material utilizing the automated aspiration irrigation unit. Viscoat elastic was instilled into the posterior capsular bag followed by placement of a posterior chamber intraocular lens without difficulty. The residual Viscoat elastic was then removed utilizing the automated IA machine. The wound was check and found to be watertight. The patient tolerated the procedure well and the lid speculum was removed. Intracameral injection of Vigamox 0.1 mL followed by a subtenon injection of Kenalog-40 0.2 mL were administered. The patient will be seen in the a.m.
[2023-09-09 10:51] VITALS: BP 111/83; PULSE 60; RESP 16; TEMP 36.9; O2SAT 96
== END 2023-09-09 11:00 | disposition home or self-care (01) ==
PROVIDERS: PCP Internal Medicine; Visit Provider Ophthalmology
PROC: (CPT 66985; principal; 2023-09-09 10:00)
DX: H25.12 Age-related nuclear cataract, left eye (principal); H52.4 Presbyopia; H43.399 Other vitreous opacities, unspecified eye; H18.413 Arcus senilis, bilateral; J44.9 Chronic obstructive pulmonary disease, unspecified; J30.9 Allergic rhinitis, unspecified; Z85.810 Personal history of malignant neoplasm of tongue; Z85.828 Personal history of other malignant neoplasm of skin; Z79.899 Other long term (current) drug therapy
CPT/HCPCS: 66984; J2250; J3010; J3301; V2630

== ENCOUNTER 2023-09-30 08:35 | Day surgery (SDC) | payer MEDICARE, SELFPAY ==
[2023-09-04 10:44] VITALS: BMI 17.0
--- NOTE | 2023-09-27 10:41 | HO.ANESPROP2 ---
Documented by User: Sera Mauro NP 09/27/23 10:46 HPI - Anesthesia Eval Consult details Narrative: 78yo F for Right Cataract Extraction IOL Insertion Medically cleared Left eye 09/09/23: Fent 50, Midaz 0.5 PMFSH Active Problems Active Problems: All Active Problems (Updated 09/03/23 @ 14:28 by Ascencion Stiles MD) Cataracts, bilateral (Acute) Preoperative examination (Acute) Cardiac murmur (Acute) Osteoarthritis of right shoulder (Acute) Right shoulder pain (Acute) Torticollis, acute (Acute) Colon cancer screening (Acute) COPD (chronic obstructive pulmonary disease) (Acute) Dyspnea (Acute) Medicare annual wellness visit, subsequent (Acute) Vitamin B12 deficiency (dietary) anemia (Acute) Chest tightness (Acute) Insomnia (Acute) Allergic rhinitis (Acute) GERD (gastroesophageal reflux disease) (Acute) Headache (Acute) Past Medical History Medical History COPD (chronic obstructive pulmonary disease) Insomnia Allergic rhinitis GERD (gastroesophageal reflux disease) History of skin cancer History of mouth cancer Hx of ovarian cyst Family History Family History Father HTN (hypertension) Sister HTN (hypertension) Surgical History Surgical History History of colonoscopy (~05/07/08) Status post surgical removal of malignant neoplasm of skin Hx of ovarian cystectomy History of Problems with Anesthesia: No Social History Social History Housing: Apartment Alcohol intake: never Patient Tobacco Use Status: Never used Tobacco e-Cigarette/Vaping Use: Never Used Second Hand Smoke Exposure: Yes Advance Directives: No Advance Directives Information Provided: Yes Advance Directives on File: No Patient : No service: No Current occupational status: retired Cognitive needs: No Hearing needs: No Vision needs: No Meds Allergies Allergy/AdvReac Type Severity Reaction Status Date / Time Seasonal Allergies Allergy Mild Unknown Verified 09/09/23 08:58 Home Medications Medication Instructions Recorded Confirmed Last Taken Type albuterol sulfate 90 mcg/actuation 2 puff inhalation Q6H PRN 05/02/20 09/04/23 Unknown History aerosol inhaler Shortness Of Breath Or Wheezing ftiypge-wxvrgzstiwrrr-sevjuahq 250 2 tab PO Q6H PRN Migraine Headache 08/01/21 09/04/23 Unknown History mg-250 mg-65 mg tablet (Excedrin Migraine) fluticasone propionate 50 2 spray intranasal DAILY PRN nasal 08/01/21 09/04/23 Unknown History mcg/actuation nasal congestion spray,suspension melatonin 3 mg capsule 12 mg PO BEDTIME PRN Insomnia 04/15/23 09/04/23 Unknown History Exam Height,Weight and Vital Signs: Height 5 ft 3 in Weight 43.545 kg Assessment and Plan Assessment Anesthesia Assessment: Chart Reviewed Final Anesthetic Review History of Problems with Anesthesia: No Documented by User: Gena Nelson MD 09/30/23 11:16 [facility] Past Medical History Medical History COPD (chronic obstructive pulmonary disease) Insomnia Allergic rhinitis GERD (gastroesophageal reflux disease) History of skin cancer History of mouth cancer Hx of ovarian cyst Family History Family History Father HTN (hypertension) Sister HTN (hypertension) Family history of problems with anesthesia: No Surgical History Surgical History History of colonoscopy (~05/07/08) Status post surgical removal of malignant neoplasm of skin Hx of ovarian cystectomy History of Problems with Anesthesia: No Social History Social History Housing: Apartment Alcohol intake: never Patient Tobacco Use Status: Never used Tobacco e-Cigarette/Vaping Use: Never Used Second Hand Smoke Exposure: Yes Advance Directives: No Advance Directives Information Provided: Yes Advance Directives on File: No Patient : No service: No Current occupational status: retired Cognitive needs: No Hearing needs: No Vision needs: No Meds Allergies Allergy/AdvReac Type Severity Reaction Status Date / Time Seasonal Allergies Allergy Mild Unknown Verified 09/09/23 08:58 Home Medications Medication Instructions Recorded Confirmed Last Taken Type albuterol sulfate 90 mcg/actuation 2 puff inhalation Q6H PRN 05/02/20 09/04/23 Unknown History aerosol inhaler Shortness Of Breath Or Wheezing wjznynr-fxzbumwiwykpw-dyocoysr 250 2 tab PO Q6H PRN Migraine Headache 08/01/21 09/04/23 Unknown History mg-250 mg-65 mg tablet (Excedrin Migraine) fluticasone propionate 50 2 spray intranasal DAILY PRN nasal 08/01/21 09/04/23 Unknown History mcg/actuation nasal congestion spray,suspension melatonin 3 mg capsule 12 mg PO BEDTIME PRN Insomnia 04/15/23 09/04/23 Unknown History Exam Airway Mallampati Class: II TM Dist: >3cm Heart: rrr Lungs: cta Assessment and Plan Assessment Anesthesia Assessment: Anesthesia Plan Discussed Final Anesthetic Review Family History of Problems with Anesthesia: No History of Problems with Anesthesia: No NPO: No ASA Class: III Final Preanesthetic Review: No Changes in Pt Med Stat, Meds/Allgs Chart Reviewed, Consent Obtained/Reviewed and Anes Risks/Benef Reviewed Patient Risk: Intermediate Procedure Risk: Low Anesthetic Plan Anesthetic Plan: MAC: Disposition: Standard PACU
[2023-09-30 09:11] VITALS: BMI 18.0
[2023-09-30 09:12] VITALS: PULSE 62; RESP 18; TEMP 36.8; O2SAT 97
[2023-09-30] MEDS: Lactated Ringers 500 ML 50 ML IV (11:24)
[2023-09-30] MEDS: Phenylephrine HCL 2.5% Oph SoL 2 ML BOTTLE 1 DROP EYE-RIGHT ×3 (11:24→11:30)
[2023-09-30] MEDS: Tetracaine HCl/PF 0.5% Oph Sol 4 ML DROPS 1 DROP EYE-RIGHT (11:24)
[2023-09-30] MEDS: Ketorolac Tromethamine 0.5% Op 5 ML DROPS 1 DROP EYE-RIGHT ×3 (11:25→11:30)
[2023-09-30] MEDS: Tropicamide 1 % Ophth Sol 3 ML BTL 1 DROP EYE-RIGHT ×3 (11:25→11:31)
[2023-09-30] MEDS: Cyclopentolate 1 % Ophth Sol 2 ML DRPBTL 1 DROP EYE-RIGHT ×3 (11:25→11:30)
[2023-09-30 11:35] VITALS: BP 125/65; PULSE 62; RESP 18; TEMP 36.8; O2SAT 97
--- NOTE | 2023-09-30 12:50 | MHC.SHP ---
Pre-Procedural Eval Section A - 24 Hr Update-Section A only Date of Service: 09/30/23 The patient is an INPATIENT: No Changes since office visit: No Cold of Flu in the past 2 weeks, No New Medical Problems, No Changes in Medication and No Patient answered all questions The patient has been examined within 24 hours of the surgical procedure. The History & Physical has been completed within 30 days and I have reviewed it.: Yes Section B - Complete if H&P > 30 days Chief Complaint: Age-related nuclear cataract, right eye Allergies: Allergies Allergy/AdvReac Type Severity Reaction Status Date / Time Seasonal Allergies Allergy Mild Unknown Verified 09/09/23 08:58 Plan Diagnosis/Plan: Unchanged I have reviewed the history and physical and performed a pertinent physical examination on my patient. No changes have occurred unless specified. Time Spent With Patient Time: Total time managing care of this patient today ____ minutes.
--- NOTE | 2023-09-30 12:51 | HO.PNOPHT ---
Ophthalmology Procedure Procedure Date of Service: 09/30/23 Ophthalmology Viscoelastic: Healon Duet Dual Pack Pro Ophthalmology Lenses: Other ([id number] 21) Procedure Notes: PREOPERATIVE DIAGNOSIS: Decreased visual acuity right eye secondary to cataract POSTOPERATIVE DIAGNOSIS: Same PROCEDURE: Right cataract extraction with intraocular lens insertion SURGEON: Jt Isabel M.D. ANESTHESIA: Topical/MAC ESTIMATED BLOOD LOSS: None COMPLICATIONS: None After obtaining informed consent, the patient was brought to the operating room suite and placed in the supine position. After adequate sedation per anesthesia, topical drops of Tetracaine were given to the right eye. The eye was then prepped and draped in the usual sterile fashion. The operating room microscope was then positioned over the operative eye and a lid speculum placed. A paracentesis was created. Viscoelastic was then instilled into the anterior chamber. A three plane incision was then created temporally, utilizing a 2.85 mm keratome. Capsulotomy forceps were then utilized to create a circular tear capsulotomy. Hydrodissection and hydrodelineation were carried out until adequate mobilization of the nucleus occurred. Phacoemulsification was then utilized to remove the dense central nucleus followed by removal of the cortical material utilizing the automated aspiration irrigation unit. Viscoelastic was instilled into the posterior capsular bag followed by placement of a posterior chamber intraocular lens without difficulty. The residual Viscoelastic was then removed utilizing the automated IA machine. The wound was checked and found to be watertight. The patient tolerated the procedure well and the lid speculum was removed. Intracameral injection of Vigamox 0.1 mL followed by a subtenon injection of Kenalog-40 0.2 mL were administered. The patient will be seen in the a.m.
[2023-09-30 13:28] VITALS: BP 137/76; PULSE 57; RESP 16; TEMP 36.2; O2SAT 98
== END 2023-09-30 13:47 | disposition home or self-care (01) ==
PROVIDERS: PCP Internal Medicine; Visit Provider Ophthalmology
PROC: (CPT 66985; principal; 2023-09-30 10:30)
DX: H25.11 Age-related nuclear cataract, right eye (principal); H52.4 Presbyopia; H43.399 Other vitreous opacities, unspecified eye; H18.413 Arcus senilis, bilateral; J44.9 Chronic obstructive pulmonary disease, unspecified; J30.9 Allergic rhinitis, unspecified; Z79.51 Long term (current) use of inhaled steroids; Z79.82 Long term (current) use of aspirin; Z79.899 Other long term (current) drug therapy; Z98.890 Other specified postprocedural states
CPT/HCPCS: 66984; J2250; J3301; V2630

== ENCOUNTER 2023-11-29 06:30 | Outpatient (REF) | payer MEDICARE, SELFPAY ==
[2023-11-29 10:19] LABS: MANUAL DIFF FLAG NO
[2023-11-29 10:35] LABS: Basophils Absolute Auto 0.1 X10*3/uL (0.0-0.2); Basophils Percent Auto 0.9 % (0-2); Eosinophils Absolute Auto 0.9 X10*3/uL (0.0-0.4); Eosinophils Percent Auto 8.3 % (0-4); Hematocrit 40.6 % (37.0-47.0); Hemoglobin 13.5 g/dl (12.0-16.0); Imm Gran Abs Auto 0.04 X10*3/uL (0.00-0.03); Imm Gran Pct Auto 0.4 % (0.0-0.4); Lymphocytes Absolute Auto 2.5 X10*3/uL (1.2-4.9); Lymphocytes Percent Auto 23.1 % (20-40); Mean Corpuscular HGB Conc 33.3 g/dl (31.0-35.0); Mean Corpuscular Hemoglobin 32.4 pg (27.0-33.0); Mean Corpuscular Volume 97.4 fL (80.0-98.0); Mean Platelet Volume 9.7 fL (9.4-12.3); Monocytes Absolute Auto 0.6 X10*3/uL (0.1-1.2); Monocytes Percent Auto 5.8 % (2-11); Neutrophils Absolute Auto 6.6 x10*3/uL (2.0-8.3); Neutrophils Percent Auto 61.5 % (45-73); Platelet Count 317 X10*3/uL (160-400); Red Blood Count 4.17 X10*6/uL (4.20-5.50); Red Cell Distribution Width 12.5 % (11.0-16.0); White Blood Count 10.7 X10*3/uL (4.8-10.8)
[2023-11-29 10:45] LABS: Appearance Urine Clear; Color Urine Yellow; Glucose Urine UA Negative (Negative); Leukocyte Esterase Urine Negative (Negative); Nitrite Urine Negative (Negative); Urine Blood Negative (Negative); Urine Ketones Negative (Negative); Urine Protein Negative (Neg-Trace)
[2023-11-29 10:53] LABS: Alanine Aminotransferase 16 U/L (0-31); Albumin Level 4.2 g/dL (3.5-5.0); Alkaline Phosphatase 81 U/L (39-117); Anion Gap 14 (12-20); Aspartate Amino Transferase 25 U/L (5-31); Bilirubin Total 0.6 mg/dL (0.0-1.0); Blood Urea Nitrogen 11 mg/dL (9-16); Calcium 9.6 mg/dL (8.4-10.2); Carbon Dioxide 24 mmol/L (22-29); Chloride 101 mmol/L (96-108); Cholesterol 199 mg/dL (<200); Estimated Glomerular Filt Rate > 60; Glucose Fasting 85 mg/dL (60-99); HDL Cholesterol 90 mg/dL (>40); LDL Cholesterol Calculated 98 mg/dL (<100); Potassium 4.1 mmol/L (3.3-5.1); Sodium 135 mmol/L (135-145); Total Protein 7.4 g/dL (6.5-8.0); Triglycerides 55 mg/dL (<150)
[2023-11-29 11:13] LABS: TSH reflex Free T4 2.34 uIU/mL (0.32-4.0); Vitamin D 25-OH Total 46.2 ng/mL (>30)
== END 2023-11-29 06:31 | disposition home or self-care (01) ==
LOC: HO.HMGCLDS 06:30
PROVIDERS: PCP Internal Medicine; Visit Provider Internal Medicine
DX: I10 Essential (primary) hypertension (principal); R30.0 Dysuria; E78.00 Pure hypercholesterolemia, unspecified; E55.9 Vitamin D deficiency, unspecified
CPT/HCPCS: 36415; 80053; 80061; 81003; 82306; 84443; 85025

== ENCOUNTER 2023-12-04 14:15 | Outpatient (AMB) | payer MEDICARE, SELFPAY ==
[2023-12-04 14:18] VITALS: BP 118/78; PULSE 70; O2SAT 96; BMI 16.3
--- NOTE | 2023-12-04 14:18 | A.OFFPC_ITS ---
Vital Signs 12/04/23 14:18 Height 5 ft 4 in Weight 95 lb 0.2 oz BMI 16.3 BP 118/78 Blood Pressure Location Lt brachial Position Sitting Pulse 70 Pulse Source Pulse Oximeter Pulse Oximetry (%) 96 Oxygen Delivery Method Room Air Intake Visit Reasons: Follow Up Director Of Strategic Partnerships Required: No Allergies Seasonal Allergies Allergy (Mild, Verified 12/04/23 14:31) Unknown Medication List - Last Reconciled 12/04/23 by Ascencion Stiles MD albuterol sulfate 90 mcg/actuation 2 puffs inhalation Q6H PRN yiwfiyr-ujvtxqfrbuhqo-ldosmjlv 250-250-65 mg (Excedrin Migraine) 2 tabs PO Q6H PRN fluticasone propionate 50 mcg/actuation 2 sprays intranasal DAILY PRN melatonin 12 mg PO BEDTIME PRN meloxicam 15 mg PO DAILY PRN zolpidem 10 mg PO BEDTIME PRN 10 days Tobacco use date assessed: 12/04/23 Fall risk assessment: No Falls in past year Last assessed Fall Risk: 12/04/23 Dental Screening Dental Screen Date: 12/04/23 HPI Follow Up HPI Details Patient comes in today for her follow up visit States that she feels okay She denies any headaches or dizziness Denies any chest pains, no SOB No nausea/vomiting, no abdominal pain No change in bowel habits noted Had her follow up labs done a few days ago - to discuss her results [facility] Medical History COPD (chronic obstructive pulmonary disease) Insomnia Allergic rhinitis GERD (gastroesophageal reflux disease) History of skin cancer History of mouth cancer Hx of ovarian cyst Surgical History History of colonoscopy (~05/07/08) Status post surgical removal of malignant neoplasm of skin Hx of ovarian cystectomy Family History Father HTN (hypertension) Sister HTN (hypertension) Social History Housing: Apartment Alcohol intake: never Patient Tobacco Use Status: Never used Tobacco e-Cigarette/Vaping Use: Never Used Second Hand Smoke Exposure: Yes service: No Current occupational status: retired Cognitive needs: No Hearing needs: No Vision needs: No Female Reproductive History Menstrual Age of Menarche: 13 Questionnaire Thrive Questionnaire Date Thrive assessed: 09/03/23 AUDIT C Alcohol Use Questionnaire (AUDIT-C) 1. How often do you have a drink containing alcohol?: Never 3. How often do you have six or more drinks on one occasion?: Never Total Score: 0 Score Reviewed/Action Taken: Yes CARINA-7 AMB Questionnaire CARINA-7 Date CARINA - 7 assessed: 09/03/23 Source: Developed by Drs. Trenton Gomez, Frances Tang, Sergo Colby and colleagues, with an educational margareth from [employer]. Review of Systems Const Denies chills, Denies fatigue, Denies fever(s) and Denies headache(s) ENT Denies dysphagia, Denies dizziness, Denies otalgia, Denies headache(s), Denies neck pain, Denies odynophagia and Denies sore throat Card Denies chest pain, Denies palpitations and Denies dyspnea Resp Denies cough, Denies dyspnea and Denies wheezing GI Denies abdominal pain, Denies constipation, Denies dysphagia, Denies heartburn, Denies diarrhea, Denies nausea, Denies odynophagia and Denies vomiting Denies difficulty voiding, Denies nocturia and Denies dysuria Musc Denies neck pain Skin/Breast Denies rash Neuro Denies dizziness and Denies headache(s) Endo Denies fatigue and Denies palpitations Aller/Immun Denies wheezing Physical exam (Primary Care) Vital Signs: Last Vital Signs Pulse 70 12/04/23 14:18 BP 118/78 12/04/23 14:18 Pulse Ox 96 12/04/23 14:18 Oxygen Delivery Method Room Air 12/04/23 14:18 BMI result Body Mass Index 16.3 Tobacco/Smoking Status: Tobacco use Status Tobacco use date assessed 12/04/23 12/04/23 14:24 Patient Tobacco Use Status Never used Tobacco 12/04/23 14:24 e-Cigarette/Vaping Use Never Used 12/04/23 14:24 Thrive Assessment: Date of Thrive Assessment Date Thrive assessed 09/03/23 12/04/23 14:24 Const General: no acute distress and alert HENMT Ears: TM's normal bilaterally and EAC's normal Throat: Yes posterior oropharynx normal and Yes tonsils normal Neck Neck: Yes no lymphadenopathy and Yes supple Thyroid: Thyroid normal Resp Auscultation: clear to auscultation bilaterally, no rales and no wheezes Cardio Rate: regular rate Rhythm: regular rhythm Heart sounds: Murmur heart sound present systolic blowing, soft and at the apex GI Palpation (GI): Soft to palpation and nontender Auscultation: normal bowel sounds Back/Spine/Pelvis Thoracic/Lumbar Spine: No lumbar spinal tenderness Skin Rashes: no rashes Extrem General: Yes no clubbing, cyanosis or edema Results Reviewed Results Reviewed: Laboratory Tests 11/29/23 11/29/23 07:06 07:10 WBC 10.7 Hgb 13.5 Hct 40.6 Plt Count 317 Sodium 135 Potassium 4.1 Creatinine 0.75 Estimated GFR > 60 Fasting Glucose 85 Calcium 9.6 D AST 25 ALT 16 Triglycerides 55 Cholesterol 199 LDL Cholesterol, Calc 98 HDL Cholesterol 90 25-OH Vitamin D Total 46.2 TSH 2.34 Ur Specific [place] 1.010 Urine Protein Negative Urine Glucose (UA) Negative Urine Blood Negative Urine Nitrite Negative Ur Leukocyte Esterase Negative Assessment and Plan Assessment & Plan (1) COPD (chronic obstructive pulmonary disease): Code(s): J44.9 - Chronic obstructive pulmonary disease, unspecified Qualifiers: COPD type: unspecified COPD Qualified Code(s): J44.9 - Chronic obstructive pulmonary disease, unspecified Plan: Controlled/stable Chest x-rays done in October 2021 revealed hyperinflated lungs without acute process PFTs done on 02/13/2022 for further evaluation revealed findings of moderate COPD with a restrictive pattern Continue Albuterol HFA 1 to 2 inhalations every 6 hours PRN Patient's activity / exercise tolerance appear to be appropriate for her age and she reports that she only has to use her inhaler as needed and not everyday; she still does not appear to need any controller Rx at this time (2) Headache: Code(s): R51.9 - Headache, unspecified Qualifiers: Headache chronicity pattern: unspecified pattern Headache type: unspecified Intractability: not intractable Qualified Code(s): R51.9 - Headache, unspecified Plan: Stable - may likely be migraine headaches States that she is just taking OTC Excedrin PRN with (+) relief of her headaches at this time Reinforced avoidance of potential migraine triggers Will consider prophylactic Tx if her headaches start to occur more often or progress (3) Cardiac murmur: Code(s): R01.1 - Cardiac murmur, unspecified Plan: She has a soft, blowing systolic murmur heard loudest at the apex - possibly due to MR or TR Patient is currently completely asymptomatic from a cardiac standpoint Will send her for echocardiogram for further evaluation (4) Allergic rhinitis: Code(s): J30.9 - Allergic rhinitis, unspecified Qualifiers: Allergic rhinitis seasonality: unspecified Allergic rhinitis trigger: unspecified Qualified Code(s): J30.9 - Allergic rhinitis, unspecified Plan: Patient uses OTC Fluticasone nasal spray PRN She is still not interested in allergy testing or referral to 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 at present States that eliminating dairy products from her diet recently seems to have helped a lot with her allergies May also take OTC Loratadine 10 mg QD PRN for additional symptom relief (5) GERD (gastroesophageal reflux disease): Code(s): K21.9 - Gastro-esophageal reflux disease without esophagitis Qualifiers: Esophagitis presence: without esophagitis Qualified Code(s): K21.9 - Gastro-esophageal reflux disease without esophagitis Plan: Reinforced dietary restrictions in GERD Is currently taking OTC Gaviscon TID with meals with relief and states that she is happy with continuing current Rx for now To consider referral to GI and EGD if symptoms persist or worsen (6) Vitamin B12 deficiency (dietary) anemia: Comment: Patient is 90% vegetarian - eats chicken and turkey but no red meats Code(s): D51.8 - Other vitamin B12 deficiency anemias Plan: (+) Hx of anemia and B12 deficiency and she currently takes OTC Vitamin B12 tablets daily - patient is a vegetarian Her repeat CBC done a few days ago came back normal, with H/H at 13.5/40.6 (7) Insomnia: Code(s): G47.00 - Insomnia, unspecified Qualifiers: Insomnia type: unspecified Qualified Code(s): G47.00 - Insomnia, unspecified Plan: Sleep hygiene reinforced Continue Zolpidem 10 mg Q HS PRN Advised that she can also continue taking OTC Melatonin with her Zolpidem as needed Plan Follow up in 6 months Orders: Orders CA echo transthoracic complete 12/04/23 R01.1 - Cardiac murmur, unspecified Coding Level of Care Code Est Pt Level 4 (02741) Diagnoses Chronic obstructive pulmonary disease, unspecified COPD type J44.9 COPD type: unspecified COPD Nonintractable headache, unspecified chronicity pattern, unspecified headache type R51.9 Headache chronicity pattern: unspecified pattern Headache type: unspecified Intractability: not intractable Cardiac murmur R01.1 Allergic rhinitis, unspecified seasonality, unspecified trigger J30.9 Allergic rhinitis seasonality: unspecified Allergic rhinitis trigger: unspecified Gastroesophageal reflux disease without esophagitis K21.9 Esophagitis presence: without esophagitis Vitamin B12 deficiency (dietary) anemia D51.8 Insomnia, unspecified type G47.00 Insomnia type: unspecified
== END 2023-12-04 14:43 | disposition home or self-care (01) ==
PROVIDERS: PCP Internal Medicine; Visit Provider Internal Medicine
DX: J44.9 Chronic obstructive pulmonary disease, unspecified (principal); R51.9 Headache, unspecified; R01.1 Cardiac murmur, unspecified; J30.9 Allergic rhinitis, unspecified; K21.9 Gastro-esophageal reflux disease without esophagitis; D51.8 Other vitamin B12 deficiency anemias; G47.00 Insomnia, unspecified
CPT/HCPCS: 99214

== ENCOUNTER → 2024-01-01 13:42 | Outpatient (REF) | payer MEDICARE, SELFPAY ==
--- NOTE | 2024-01-01 13:44 | CA_ITS ---
Transthoracic Echocardiogram Patient (Last, First, Middle): Candice Barraza L Gender: Female Date of : 1945 Age: 78 Procedure Date: 01/01/2024 Procedure Type: Transthoracic Echocardiogram Location: OP Height: 162.56 cm Weight: 47.63 kg BSA: 1.49 m2 Heart Rate: 69 bpm BP: 116 / 68 mmHg Database Marketing Manager: EDEL Referring MD: Ascencion Stiles MD Display Associate: Sher Kolb MD Symptoms: R01.1 - Cardiac murmur, unspecified Study Quality: Adequate ECG Rhythm: Sinus Conclusions: - 1. Normal LV ejection fraction of 65-70% 2. Mild mitral regurgitation 3. Olmu-nr-stbfgttu tricuspid regurgitation with upper limits of normal RV systolic pressure 4. No gross pericardial effusion Findings Left Ventricle Normal left ventricular size, thickness, and systolic function. The visually estimated ejection fraction is between 65-70%. Spectral Doppler is indicative of a normal filling pattern. Right Ventricle Normal right ventricular cavity size and systolic function. Atria Both atria are normal in size. There is lipomatous hypertrophy of the interatrial septum. There is no evidence of interatrial shunt. Aortic Valve Normal aortic valve structure and function. There is no aortic valve stenosis. There is no aortic valve regurgitation. Mitral Valve There is mild anterior and posterior mitral leaflet thickening. There is mild mitral valve regurgitation. There is no mitral valve stenosis. Pulmonic Valve The pulmonic valve is likely normal. There is trace pulmonic valve regurgitation. Tricuspid Valve Normal tricuspid valve structure. There is mild to moderate tricuspid valve regurgitation. Normal right atrial pressure. There is no evidence of pulmonary hypertension. Great Vessels All visible segments of the aorta are normal in size. The pulmonary artery was not well visualized. There is no dilatation of the ascending aorta measuring 3.20 cm. Venous The inferior vena cava is normal in size and collapses greater than 50% with inspiration. Pericardium/Pleural There is no evidence of pericardial effusion. Prior Study Comparison No prior study available for comparison. Measurements 2D Linear Measurements IVSd: 0.63 0.6-0.9/0.6-1.0 cm LVIDd: 3.45 3.9-5.3/4.2-5.9 cm LVIDd Index: 2.32 2.4-3.2/2.2-3.1 cm/m2 LVIDs: 2.09 2.0-3.6 cm LVPWd: 0.59 0.7-1.1 cm LA Diam: 2.60 2.7-3.8/3.0-4.0 cm LAIDs Index: 1.74 1.5-2.3 cm/m2 LV Mass: 63.15 67-162/88-224 g LV Mass Index: 42.38 43-95/49-115 g/m2 LVOT Diam: 2.20 3.0+(-)1.3 cm 2D Systolic Function EF 4C: 66.20 >55% EF 2C: 70.20 >55% EF BiP: 69.10 >55% Mitral Valve MV Pk E: 0.69 MV PK A: 0.62 MV Decel Time: 255.00 E/A: 1.10 E'Lateral: 9.03 E'Medial: 7.72 E/E' Med: 8.90 E/E' Lat: 7.60 PHT: 75.00 MVA PHT: 2.[address] [place]: 2.70 Aortic Valve AoV Pk Devang: 1.31 AoV Pk Grad: 7.00 LVOT LVOT Pk Devang: 1.12 LVOT Mn Devang: 0.78 LVOT VTI: 0.23 LVOT Pk Grad: 5.00 LVOT Mn Grad: 3.00 LVOT Diam: 2.20 LVOT Area: 3.80 Diastolic Function MV Pk E: 0.69 MV Pk A: 0.62 E/A: 1.10 E'Medial: 7.72 E/E' Med: 8.90 E' Laterial: 9.03 E/E' Lat: 7.60 Right Ventricle TAPSE (mm): 30.00 TVS' Devang: 19.30 Tricuspid Valve TR Pk Devang: 2.97 TR Pk Grad: 35.00 RA Press: 3.00 RVSP: 38.00 Great Vessels Aorta Sinus of Valsalva: 3.30 2.0-3.5 cm Ao Asc: 3.20 2.1-3.4 cm Pulmonary Valve PV Pk Devang: 0.92 Peak PV Grad: 3.00 Updated in Other Vendor System with Status of Final Sher Kolb MD electronically signed on 01/01/2024 5:07:11 PM with status of Final
== END ==
LOC: HO.CARD 13:42
PROVIDERS: PCP Internal Medicine; Visit Provider Internal Medicine
DX: R01.1 Cardiac murmur, unspecified (principal)
CPT/HCPCS: 93306

== ENCOUNTER → 2024-01-01 13:44 | Outpatient (BNV) | payer MEDICARE, SELFPAY | PROVIDERS: PCP Internal Medicine; Visit Provider Internal Medicine Cardiovascular Disease | DX: I36.1 Nonrheumatic tricuspid (valve) insufficiency (principal); I34.0 Nonrheumatic mitral (valve) insufficiency | CPT/HCPCS: 93306 ==

== ENCOUNTER 2024-06-05 13:16 | Outpatient (AMB) | payer MEDICARE, SELFPAY ==
[2024-06-05 13:19] VITALS: BP 120/78; PULSE 78; O2SAT 98; BMI 15.8
--- NOTE | 2024-06-05 13:19 | MHC.PC.OV ---
Vital Signs 06/05/24 13:19 Height 5 ft 4 in Weight 92 lb 4 oz BMI 15.8 BP 120/78 Blood Pressure Location Lt brachial Position Sitting Pulse 78 Pulse Source Pulse Oximeter Pulse Oximetry (%) 98 Oxygen Delivery Method Room Air Intake Visit Reasons: 6mth f/u Employee Adviser Required: No Accompanied by: Self / Same As Patient Allergies Seasonal Allergies Allergy (Mild, Verified 06/05/24 14:02) Unknown Medication List - Last Reconciled 06/05/24 by Ascencion Stiles MD albuterol sulfate 90 mcg/actuation 2 puffs inhalation Q6H PRN ltzyhxm-bwjtqbuxlxbll-dyozelku 250-250-65 mg (Excedrin Migraine) 2 tabs PO Q6H PRN fluticasone propionate 50 mcg/actuation 2 sprays intranasal DAILY PRN melatonin 12 mg PO BEDTIME PRN meloxicam 15 mg PO DAILY PRN zolpidem 10 mg PO BEDTIME PRN 10 days Tobacco use date assessed: 06/05/24 Fall risk assessment: No Falls in past year Last assessed Fall Risk: 06/05/24 Dental Screening Dental Screen Date: 06/05/24 Did you have a dental visit in the last 12 months?: Yes Did you have a dental problem in the last 6 months where you did not have access to dental care?: No Was dental information given to patient?: Patient has dentist HPI 6mth f/u HPI Details Patient comes in today for her follow-up visit States that she feels okay She denies any headaches or dizziness Denies any chest pains, no increased shortness of breath No nausea/vomiting, no abdominal pain No change in bowel habits noted PFSH Medical History COPD (chronic obstructive pulmonary disease) Insomnia Allergic rhinitis GERD (gastroesophageal reflux disease) History of skin cancer History of mouth cancer Hx of ovarian cyst Surgical History History of colonoscopy (~05/07/08) Status post surgical removal of malignant neoplasm of skin Hx of ovarian cystectomy Family History Father HTN (hypertension) Sister HTN (hypertension) Social History Housing: Apartment Alcohol intake: never Patient Tobacco Use Status: Never used Tobacco e-Cigarette/Vaping Use: Never Used Second Hand Smoke Exposure: Yes service: No Current occupational status: retired Cognitive needs: No Hearing needs: No Vision needs: No Female Reproductive History Menstrual Age of Menarche: 13 Questionnaire PHQ-9 Over the last 2 weeks, how often have you been bothered by any of the following problems? 1. Little interest or pleasure in doing things: not at all 2. Feeling down, depressed, or hopeless: not at all 3. Trouble falling or staying asleep, or sleeping too much: not at all 4. Feeling tired or having little energy: not at all 5. Poor appetite or overeating: not at all 6. Feeling bad about yourself - or that you are a failure or have let yourself or your family down: not at all 7. Trouble concentrating on things, such as reading the newspaper or watching television: not at all 8. Moving or speaking so slowly that other people could have noticed. Or the opposite - being so fidgety or restless that you have been moving around a lot more than usual: not at all 9. Thoughts that you would be better off or of hurting yourself in some way: not at all Total score: 0 Depression Screening Interpretation: Negative Depression Screening Done: Yes 08976 - PHQ-9 Billing: Yes Source: Developed by Drs. Trenton Gomez, Frances Tang, Sergo Colby and colleagues, with an educational margareth from [employer]. Thrive Questionnaire Date Thrive assessed: 06/05/24 I am a: Patient What is your living situation today?: I have a steady place to live Within the past 12 months, did the food you bought not last and you didn't have the money to get more?: Never true Within the past 12 months, did you worry whether your food would run out before you got money to buy more?: Never true Do you have trouble paying for medicines?: No Do you have trouble getting transportation to medical appointments?: No Do you have trouble paying your heating and electricity bill?: No Do you have trouble taking care of your child, family member or friend?: No Do you have trouble with day-to-day activities such as bathing, preparing meals, shopping, managing finances, etc.?: No Are you currently unemployed and looking for a job?: No Are you interested in more education?: No Please select the resources that you would like help with: None Currently or been in a relationship where the following occur: No concerns reported THRIVE Score: 0 AUDIT C Alcohol Use Questionnaire (AUDIT-C) 1. How often do you have a drink containing alcohol?: Never 3. How often do you have six or more drinks on one occasion?: Never Total Score: 0 Score Reviewed/Action Taken: Yes CARINA-7 AMB Questionnaire CARINA-7 Date CARINA - 7 assessed: 06/05/24 Feeling nervous, anxious, or on edge: 0 = Not at all Not being able to stop or control worryin = Not at all Worrying too much about different things: 0 = Not at all Trouble relaxin = Not at all Being so restless that it is hard to sit still: 0 = Not at all Becoming easily annoyed or irritable: 0 = Not at all Feeling afraid as if something awful might happen: 0 = Not at all Total CARINA-7 score (0-4 normal; 5-9 mild; 10-14 moderate; 15-21 severe): 0 Source: Developed by Drs. Trenton Gomez, Frances Tang, Sergo Colby and colleagues, with an educational margareth from [employer]. Review of Systems Const Denies chills, Denies fatigue, Denies fever(s) and Denies headache(s) ENT Denies dysphagia, Denies dizziness, Denies otalgia, Denies headache(s), Denies neck pain, Denies odynophagia and Denies sore throat Card Denies chest pain, Denies palpitations and Denies dyspnea Resp Denies cough, Denies dyspnea and Denies wheezing GI Denies abdominal pain, Denies constipation, Denies dysphagia, Denies heartburn, Denies diarrhea, Denies nausea, Denies odynophagia and Denies vomiting Denies difficulty voiding, Denies nocturia and Denies dysuria Musc Denies neck pain Skin/Breast Denies rash Neuro Denies dizziness and Denies headache(s) Endo Denies fatigue and Denies palpitations Aller/Immun Denies wheezing Physical exam (Primary Care) Vital Signs: Last Vital Signs Pulse 78 06/05/24 13:19 BP 120/78 06/05/24 13:19 Pulse Ox 98 06/05/24 13:19 Oxygen Delivery Method Room Air 06/05/24 13:19 BMI result Body Mass Index 15.8 Tobacco/Smoking Status: Tobacco use Status Tobacco use date assessed 06/05/24 06/05/24 13:25 Patient Tobacco Use Status Never used Tobacco 06/05/24 13:25 e-Cigarette/Vaping Use Never Used 06/05/24 13:25 PHQ-9: PHQ-9 Score PHQ-9: Total score 0 06/05/24 14:03 Depression Screening Interpretation: Negative Thrive Assessment: Date of Thrive Assessment Date Thrive assessed 06/05/24 06/05/24 13:25 Currently or been in a relationship where the following occur: No concerns reported Const General: no acute distress and alert HENMT Ears: TM's normal bilaterally and EAC's normal Throat: Yes posterior oropharynx normal and Yes tonsils normal Neck Neck: Yes no lymphadenopathy and Yes supple Thyroid: Thyroid normal Resp Auscultation: clear to auscultation bilaterally, no rales and no wheezes Cardio Rate: regular rate Rhythm: regular rhythm Heart sounds: Murmur heart sound present systolic blowing, soft and at the apex GI Palpation (GI): Soft to palpation and nontender Auscultation: normal bowel sounds Back/Spine/Pelvis Thoracic/Lumbar Spine: No lumbar spinal tenderness Skin Rashes: no rashes Extrem General: Yes no clubbing, cyanosis or edema Office Procedures Flu Questionnaire Does the patient have a severe egg allergy?: No Immunizations Fluarix Triv [id number] (PF) 45 mcg (15 mcg x 3)/0.5 mL IM syringe Performing Provider: Ascencion Stiles MD [facility] Documented (not given) by: AUDELIA Coelho on 06/05/24 13:26 Reason Not Given: Patient Refused Coding Level of Care Code Est Pt Level 4 (46470) Diagnoses Chronic obstructive pulmonary disease, unspecified COPD type J44.9 COPD type: unspecified COPD Nonintractable headache, unspecified chronicity pattern, unspecified headache type R51.9 Headache type: unspecified Headache chronicity pattern: unspecified pattern Intractability: not intractable Cardiac murmur R01.1 Allergic rhinitis, unspecified seasonality, unspecified trigger J30.9 Allergic rhinitis trigger: unspecified Allergic rhinitis seasonality: unspecified Vitamin B12 deficiency (dietary) anemia D51.8 Gastroesophageal reflux disease without esophagitis K21.9 Esophagitis presence: without esophagitis Insomnia, unspecified type G47.00 Insomnia type: unspecified Additional Codes PHQ-9 - 75148 - PHQ-9 Billing: Yes ([id number]) Assessment & Plan Assessment & Plan (1) COPD (chronic obstructive pulmonary disease): Code(s): J44.9 - Chronic obstructive pulmonary disease, unspecified Category: Medical Qualifiers: COPD type: unspecified COPD Qualified Code(s): J44.9 - Chronic obstructive pulmonary disease, unspecified Plan: Controlled/stable Chest x-rays done in October 2021 revealed hyperinflated lungs without acute process PFTs done on 02/13/2022 for further evaluation revealed findings of moderate COPD with a restrictive pattern Continue Albuterol HFA 1 to 2 inhalations every 6 hours PRN Patient's activity / exercise tolerance appear to be appropriate for her age and she reports that she only has to use her inhaler as needed and not everyday; she still does not appear to need any controller Rx at this time (2) Headache: Code(s): R51.9 - Headache, unspecified Category: Medical Qualifiers: Headache type: unspecified Headache chronicity pattern: unspecified pattern Intractability: not intractable Qualified Code(s): R51.9 - Headache, unspecified Plan: Stable - may likely be migraine headaches States that she is just taking OTC Excedrin PRN with (+) relief of her headaches at this time Reinforced avoidance of potential migraine triggers Will consider prophylactic Tx if her headaches start to occur more often or progress (3) Cardiac murmur: Code(s): R01.1 - Cardiac murmur, unspecified Category: Medical Plan: Patient is currently completely asymptomatic from a cardiac standpoint Echocardiogram done a few months ago on 01/01/2024 revealed normal LV ejection fraction of 65-70%. mild mitral regurgitation and [id number] tricuspid regurgitation with upper limits of normal RV systolic pressure and no gross pericardial effusion She is advised that her cardiac murmur is mostly due to her mitral and tricuspid valve regurgitation and since they are both mild and she has no acute symptoms, no further intervention is indicated at this time We will continue to monitor her periodically; she is advised to inform us if she starts experiencing any unexplained increased shortness of breath or dyspnea on exertion at any time (4) Allergic rhinitis: Code(s): J30.9 - Allergic rhinitis, unspecified Category: Medical Qualifiers: Allergic rhinitis trigger: unspecified Allergic rhinitis seasonality: unspecified Qualified Code(s): J30.9 - Allergic rhinitis, unspecified Plan: Patient uses OTC Fluticasone nasal spray PRN She is still not interested in allergy testing or referral to smart grid engineer at present States that eliminating dairy products from her diet recently seems to have helped a lot with her allergies May also take OTC Loratadine 10 mg QD PRN for additional symptom relief (5) Vitamin B12 deficiency (dietary) anemia: Comment: Patient is 90% vegetarian - eats chicken and turkey but no red meats Code(s): D51.8 - Other vitamin B12 deficiency anemias Category: Medical Plan: (+) Hx of anemia and B12 deficiency and she is currently still taking OTC Vitamin B12 tablets daily - patient is a vegetarian Her repeat CBC done a few months ago came back normal (6) GERD (gastroesophageal reflux disease): Code(s): K21.9 - Gastro-esophageal reflux disease without esophagitis Category: Medical Qualifiers: Esophagitis presence: without esophagitis Qualified Code(s): K21.9 - Gastro-esophageal reflux disease without esophagitis Plan: Reinforced dietary restrictions in GERD She is currently taking OTC Gaviscon TID with meals with relief and states that she is happy with continuing current Rx for now To consider referral to GI and EGD if symptoms persist or worsen (7) Insomnia: Code(s): G47.00 - Insomnia, unspecified Category: Medical Qualifiers: Insomnia type: unspecified Qualified Code(s): G47.00 - Insomnia, unspecified Plan: Sleep hygiene reinforced Continue Zolpidem 10 mg Q HS PRN Advised that she can also continue taking OTC Melatonin with her Zolpidem as needed Plan Follow up in 6 months Orders: Orders Influenza [id number] Immunization 06/05/24 Z23 - Encounter for immunization Complete Blood Count Auto Diff 6 Months D64.9 - Anemia, unspecified Lipid Panel 6 Months E78.00 - Pure hypercholesterolemia, unspecified UA CC w/rflx Micro + Cult 6 Months R30.0 - Dysuria Vitamin D 25-OH Total 6 Months E55.9 - Vitamin D deficiency, unspecified Comprehensive [place]. Panel Fast 6 Months E78.00 - Pure hypercholesterolemia, unspecified TSH reflex Free T4 6 Months E78.00 - Pure hypercholesterolemia, unspecified Vitamin B12 and Folate 6 Months E53.8 - Deficiency of other specified B group vitamins
== END 2024-06-05 14:08 | disposition home or self-care (01) ==
PROVIDERS: PCP Internal Medicine; Visit Provider Internal Medicine
DX: J44.9 Chronic obstructive pulmonary disease, unspecified (principal); R51.9 Headache, unspecified; R01.1 Cardiac murmur, unspecified; J30.9 Allergic rhinitis, unspecified; D51.8 Other vitamin B12 deficiency anemias; K21.9 Gastro-esophageal reflux disease without esophagitis; G47.00 Insomnia, unspecified

== ENCOUNTER → 2024-06-05 13:16 | Outpatient (BNVA) | payer MEDICARE, SELFPAY | PROVIDERS: PCP Internal Medicine; Visit Provider Internal Medicine | DX: J44.9 Chronic obstructive pulmonary disease, unspecified (principal); R51.9 Headache, unspecified; R01.1 Cardiac murmur, unspecified; J30.9 Allergic rhinitis, unspecified; D51.8 Other vitamin B12 deficiency anemias; K21.9 Gastro-esophageal reflux disease without esophagitis; G47.00 Insomnia, unspecified | CPT/HCPCS: 90471; 96127; 99212 ==

== ENCOUNTER 2024-12-04 13:29 | Outpatient (AMB) | payer MEDICARE, SELFPAY ==
[2024-12-04 13:33] VITALS: BP 124/82; PULSE 74; O2SAT 94; BMI 16.7
--- NOTE | 2024-12-04 13:33 | A.OFFPC_ITS ---
Vital Signs 12/04/24 13:33 Height 5 ft 4 in Weight 97 lb 6 oz BMI 16.7 BP 124/82 Blood Pressure Location Lt brachial Position Sitting Pulse 74 Pulse Source Pulse Oximeter Pulse Oximetry (%) 94 Oxygen Delivery Method Room Air Intake Visit Reasons: 6mth f/u Domestic Travel Consultant Required: No Accompanied by: Self / Same As Patient Allergies Seasonal Allergies Allergy (Mild, Verified 12/04/24 14:06) Unknown Medication List - Last Reconciled 12/04/24 by Ascencion Stiles MD albuterol sulfate 90 mcg/actuation 2 puffs inhalation Q6H PRN nrwyicp-teggfgpoyqxof-rnytgdsu 250-250-65 mg (Excedrin Migraine) 2 tabs PO Q6H PRN fluticasone propionate 50 mcg/actuation 2 sprays intranasal DAILY PRN melatonin 12 mg PO BEDTIME PRN meloxicam 15 mg PO DAILY PRN zolpidem 10 mg PO BEDTIME PRN 10 days Tobacco use date assessed: 12/04/24 Fall risk assessment: No Falls in past year Last assessed Fall Risk: 12/04/24 Dental Screening Dental Screen Date: 12/04/24 Did you have a dental visit in the last 12 months?: Yes Did you have a dental problem in the last 6 months where you did not have access to dental care?: No Was dental information given to patient?: Patient has dentist HPI 6mth f/u HPI Details Patient comes in today for her follow-up visit States that she feels okay except for some issues with allergies lately States that she has Fluticasone nasal spray but finds that it does not really help too well She denies any headaches or dizziness; denies any fever or sore throat Denies any chest pains, no increased shortness of breath No nausea/vomiting, no abdominal pain No change in bowel habits noted States that she still has trouble sleeping at night sometimes but takes Melatonin, which helps She was not able to get her follow up labs done prior to her appointment today [facility] Medical History COPD (chronic obstructive pulmonary disease) Insomnia Allergic rhinitis GERD (gastroesophageal reflux disease) History of skin cancer History of mouth cancer Hx of ovarian cyst Surgical History History of colonoscopy (~05/07/08) Status post surgical removal of malignant neoplasm of skin Hx of ovarian cystectomy Family History Father HTN (hypertension) Sister HTN (hypertension) Social History Housing: Apartment Alcohol intake: never Patient Tobacco Use Status: Never used Tobacco e-Cigarette/Vaping Use: Never Used Second Hand Smoke Exposure: Yes service: No Current occupational status: retired Cognitive needs: No Hearing needs: No Vision needs: No Female Reproductive History Menstrual Age of Menarche: 13 Questionnaire PHQ-9 Over the last 2 weeks, how often have you been bothered by any of the following problems? 1. Little interest or pleasure in doing things: not at all 2. Feeling down, depressed, or hopeless: not at all 3. Trouble falling or staying asleep, or sleeping too much: several days 4. Feeling tired or having little energy: not at all 5. Poor appetite or overeating: not at all 6. Feeling bad about yourself - or that you are a failure or have let yourself or your family down: not at all 7. Trouble concentrating on things, such as reading the newspaper or watching television: not at all 8. Moving or speaking so slowly that other people could have noticed. Or the opposite - being so fidgety or restless that you have been moving around a lot more than usual: not at all 9. Thoughts that you would be better off or of hurting yourself in some way: not at all Total score: 1 Depression Screening Interpretation: Negative Depression Screening Done: Yes 18333 - PHQ-9 Billing: Yes Source: Developed by Drs. Trenton Gomez, Frances Tang, Sergo Colby and colleagues, with an educational margareth from [employer]. Thrive Questionnaire Date Thrive assessed: 12/04/24 I am a: Patient What is your living situation today?: I have a steady place to live Within the past 12 months, did the food you bought not last and you didn't have the money to get more?: Never true Within the past 12 months, did you worry whether your food would run out before you got money to buy more?: Never true Do you have trouble paying for medicines?: No Do you have trouble getting transportation to medical appointments?: No Do you have trouble paying your heating and electricity bill?: No Do you have trouble taking care of your child, family member or friend?: No Do you have trouble with day-to-day activities such as bathing, preparing meals, shopping, managing finances, etc.?: No Are you currently unemployed and looking for a job?: No Are you interested in more education?: No Please select the resources that you would like help with: None Currently or been in a relationship where the following occur: No concerns reported THRIVE Score: 0 AUDIT C Alcohol Use Questionnaire (AUDIT-C) 1. How often do you have a drink containing alcohol?: Never 3. How often do you have six or more drinks on one occasion?: Never Total Score: 0 Score Reviewed/Action Taken: Yes CARINA-7 AMB Questionnaire CARINA-7 Date CARINA - 7 assessed: 12/04/24 Feeling nervous, anxious, or on edge: 0 = Not at all Not being able to stop or control worryin = Not at all Worrying too much about different things: 0 = Not at all Trouble relaxin = Not at all Being so restless that it is hard to sit still: 0 = Not at all Becoming easily annoyed or irritable: 0 = Not at all Feeling afraid as if something awful might happen: 0 = Not at all Total CARINA-7 score (0-4 normal; 5-9 mild; 10-14 moderate; 15-21 severe): 0 Source: Developed by Drs. Trenton Gomez, Frances Tang, Sergo Colby and colleagues, with an educational margareth from [employer]. Review of Systems Const Denies chills, Reports difficulty sleeping (at times), Denies fatigue, Denies fever(s) and Denies headache(s) ENT Denies dysphagia, Denies dizziness, Denies otalgia, Denies headache(s), Reports nasal discharge (recurrent lately, mostly clear/watery), Denies neck pain, Denies odynophagia and Denies sore throat Card Denies chest pain, Denies palpitations and Denies dyspnea Resp Denies chest congestion, Denies cough and Denies dyspnea GI Denies abdominal pain, Denies constipation, Denies dysphagia, Denies heartburn, Denies diarrhea, Denies nausea, Denies odynophagia and Denies vomiting Denies difficulty voiding, Denies nocturia and Denies dysuria Musc Denies back pain and Denies neck pain Skin/Breast Denies rash Neuro Denies dizziness and Denies headache(s) Endo Denies fatigue and Denies palpitations Physical exam (Primary Care) Vital Signs: Last Vital Signs Pulse 74 12/04/24 13:33 BP 124/82 12/04/24 13:33 Pulse Ox 94 12/04/24 13:33 Oxygen Delivery Method Room Air 12/04/24 13:33 BMI result Body Mass Index 16.7 Tobacco/Smoking Status: Tobacco use Status Tobacco use date assessed 12/04/24 12/04/24 13:40 Patient Tobacco Use Status Never used Tobacco 12/04/24 13:40 e-Cigarette/Vaping Use Never Used 12/04/24 13:40 PHQ-9: PHQ-9 Score PHQ-9: Total score 1 12/04/24 13:40 Depression Screening Interpretation: Negative Thrive Assessment: Date of Thrive Assessment Date Thrive assessed 12/04/24 12/04/24 13:40 Currently or been in a relationship where the following occur: No concerns reported Const General: no acute distress and alert HENMT Ears: TM's normal bilaterally and EAC's normal Throat: Yes posterior oropharynx normal and Yes tonsils normal Neck Neck: Yes supple and No lymphadenopathy Thyroid: Thyroid normal Resp Auscultation: clear to auscultation bilaterally, no rales and no wheezes Cardio Rate: regular rate Rhythm: regular rhythm Heart sounds: Murmur heart sound present systolic blowing, soft and at the apex GI Palpation (GI): Soft to palpation and nontender Auscultation: normal bowel sounds General: Yes no CVA tenderness Back/Spine/Pelvis Back: no CVA tenderness Thoracic/Lumbar Spine: No lumbar spinal tenderness Skin Rashes: no rashes Extrem General: Yes no clubbing, cyanosis or edema Coding Level of Care Code Est Pt Level 4 (46166) Diagnoses Chronic obstructive pulmonary disease, unspecified COPD type J44.9 COPD type: unspecified COPD Nonintractable headache, unspecified chronicity pattern, unspecified headache type R51.9 Headache type: unspecified Headache chronicity pattern: unspecified pattern Intractability: not intractable Cardiac murmur R01.1 Allergic rhinitis, unspecified seasonality, unspecified trigger J30.9 Allergic rhinitis trigger: unspecified Allergic rhinitis seasonality: unspecified Vitamin B12 deficiency (dietary) anemia D51.8 Gastroesophageal reflux disease without esophagitis K21.9 Esophagitis presence: without esophagitis Insomnia, unspecified type G47.00 Insomnia type: unspecified Additional Codes PHQ-9 - 18575 - PHQ-9 Billing: Yes ([id number]) Assessment & Plan Assessment & Plan (1) COPD (chronic obstructive pulmonary disease): Code(s): J44.9 - Chronic obstructive pulmonary disease, unspecified Category: Medical Qualifiers: COPD type: unspecified COPD Qualified Code(s): J44.9 - Chronic obstructive pulmonary disease, unspecified Plan: Controlled/stable Chest x-rays done in October 2021 revealed hyperinflated lungs without acute process PFTs done on 02/13/2022 for further evaluation revealed findings of moderate COPD with a restrictive pattern Continue Albuterol HFA 1 to 2 inhalations every 6 hours PRN Patient's activity / exercise tolerance appear to be appropriate for her age and she reports that she only has to use her inhaler as needed and not everyday; she still does not appear to need any controller Rx at this time (2) Headache: Code(s): R51.9 - Headache, unspecified Category: Medical Qualifiers: Headache type: unspecified Headache chronicity pattern: unspecified pattern Intractability: not intractable Qualified Code(s): R51.9 - Headache, unspecified Plan: Stable - may likely be migraine headaches States that she is just taking OTC Excedrin PRN with (+) relief of her headaches at this time Reinforced avoidance of potential migraine triggers Will consider prophylactic Tx if her headaches start to occur more often or progress (3) Cardiac murmur: Code(s): R01.1 - Cardiac murmur, unspecified Category: Medical Plan: Patient is currently completely asymptomatic from a cardiac standpoint Echocardiogram done last year on 01/01/2024 revealed normal LV ejection fraction of 65-70%. mild mitral regurgitation and cgce-is-tobwbuee tricuspid regurgitation with upper limits of normal RV systolic pressure and no gross pericardial effusion She is advised that her cardiac murmur is mostly due to her mitral and tricuspid valve regurgitation and since they are both mild and she has no acute symptoms, no further intervention is indicated at this time We will continue to monitor her periodically; she is advised to inform us if she starts experiencing any unexplained increased shortness of breath or dyspnea on exertion at any time (4) Allergic rhinitis: Code(s): J30.9 - Allergic rhinitis, unspecified Category: Medical Qualifiers: Allergic rhinitis trigger: unspecified Allergic rhinitis seasonality: unspecified Qualified Code(s): J30.9 - Allergic rhinitis, unspecified Plan: Patient uses OTC Fluticasone nasal spray PRN although she feels that lately, it is not helping much She is still not interested in allergy testing or referral to combination machine tender at present States that eliminating dairy products from her diet recently seems to have helped a lot with her allergies May also take OTC Loratadine 10 mg QD PRN for additional symptom relief (5) Vitamin B12 deficiency (dietary) anemia: Comment: Patient is 90% vegetarian - eats chicken and turkey but no red meats Code(s): D51.8 - Other vitamin B12 deficiency anemias Category: Medical Plan: (+) Hx of anemia and B12 deficiency and she is currently still taking OTC Vitamin B12 tablets daily - patient is a vegetarian Her repeat CBC done last year came back normal (6) GERD (gastroesophageal reflux disease): Code(s): K21.9 - Gastro-esophageal reflux disease without esophagitis Category: Medical Qualifiers: Esophagitis presence: without esophagitis Qualified Code(s): K21.9 - Gastro-esophageal reflux disease without esophagitis Plan: Reinforced dietary restrictions in GERD She is currently taking OTC Gaviscon TID with meals with relief and states that she is happy with continuing current Rx for now To consider referral to GI and EGD if symptoms persist or worsen (7) Insomnia: Code(s): G47.00 - Insomnia, unspecified Category: Medical Qualifiers: Insomnia type: unspecified Qualified Code(s): G47.00 - Insomnia, unspecified Plan: Sleep hygiene reinforced Continue Zolpidem 10 mg Q HS PRN Advised that she can also continue taking OTC Melatonin with her Zolpidem as needed Plan Follow up in 6 months She is reminded to get her follow up labs done in 6 months BEFORE she returns for her appointment - will just have patient use her current lab orders (updated) for her next lab draw
--- OUTSIDE RECORDS SUMMARY | 2024-12-04 13:34 | XMS_ITS ---
Author Name [facility] Organization Unknown Care Team Organization Name Specialty Phone Email Start Date End [facility] 05/01/2022 11/30/2024
--- OUTSIDE RECORDS SUMMARY | 2024-12-04 13:34 | XMS_ITS | Patient Health Record ---
Author Organization [facility] Address [address] [address] [place] [address] Support Name Relationship Address Phone Candice Barraza Guarantor Unknown [phone] Reason For Referral No Information Plan Of Treatment No Information Insurance Providers Payer Name Payer Address Payer Phone Subscriber Number Group Number Insured Name Patient Relationship to Insured Coverage Start Date Coverage End Date [employer] [address] [place] [address] [id number] Candice Barraza Self - patient is the insured 5
== END 2024-12-04 14:11 | disposition home or self-care (01) ==
LOC: HO.HMCH 13:30
PROVIDERS: PCP Internal Medicine; Visit Provider Internal Medicine
DX: J44.9 Chronic obstructive pulmonary disease, unspecified (principal); R51.9 Headache, unspecified; R01.1 Cardiac murmur, unspecified; J30.9 Allergic rhinitis, unspecified; D51.8 Other vitamin B12 deficiency anemias; K21.9 Gastro-esophageal reflux disease without esophagitis; G47.00 Insomnia, unspecified

== ENCOUNTER → 2024-12-04 13:29 | Outpatient (BNVA) | payer MEDICARE, SELFPAY | PROVIDERS: PCP Internal Medicine; Visit Provider Internal Medicine | DX: J44.9 Chronic obstructive pulmonary disease, unspecified (principal); R51.9 Headache, unspecified; R01.1 Cardiac murmur, unspecified; J30.9 Allergic rhinitis, unspecified; D51.8 Other vitamin B12 deficiency anemias; K21.9 Gastro-esophageal reflux disease without esophagitis; G47.00 Insomnia, unspecified | CPT/HCPCS: 96127; 99212 ==

== ENCOUNTER 2025-06-01 07:44 | Outpatient (REF) | payer MEDICARE, SELFPAY ==
--- OUTSIDE RECORDS SUMMARY | 2025-06-01 07:46 | XMS_ITS | Data Portability ---
Author Organization [place] [facility], MAIN OFFICE Address [address] [place] [address] Assessment Encounter Date Assessment Date Assessment LastModified by Organization Details LastModified Time 05/06/2024 05/06/2024 Spent 60 minutes for evaluation and management, including face to face interaction, review of labs and notes from specialist, discussion and coordination of care. Not available 05/06/2024 11:13:41 Plan of Treatment Reminders Order Date Submit Date Provider Last Modified By Organization Details Last Modified Time Details Appointments None recorded. Lab ferritin, serum or plasma 2023 [facility], [address] [place], [address], 10:06:33 folate, serum 2023 [facility], [address] [place], [address], 10:06:31 iron + total iron-eligio ng capacity (TIBC), serum 2023 024 [facility], [address] [place], [address], 10:06:31 retic count, blood 2023 024 [facility], [address] [place], [address], 10:06:34 vitamin B12, serum 2023 024 [facility], [address] [place], [address], 10:06:33 vitamin D, 25-hydroxy , total, serum 2023 [facility], [address] [place], [address], 10:06:32 CBC w/ auto diff 2023 024 [facility], [address] [place], [address], 10:06:29 CMP, serum or plasma 2023 [facility], [address] [place], [address], 10:06:30 TSH + free T4, serum 2023 [facility], [address] [place], [address], 10:06:27 Referral None recorded. Procedures None recorded. Surgeries None recorded. Imaging None recorded. Medication Orders albuterol sulfate HFA 90 mcg/actuat ion aerosol inhaler 2023 [id number], [address] [place], [address], 11:31:45 Patient TargetsNo targets recorded. Patient InstructionsNo instructions recorded. Reason for Referral None Reported. Medical Equipment None Reported. Allergies No known drug allergies Medications Name Sig Start Date Stop Date Status Note LastModified by Organization Details LastModified Time meloxicam 15 mg tablet TAKE 1 TABLET ORALLY DAILY NEEDED FOR PAIN TAKE WITH FOOD ONLY NEEDED active Not Available Not Available No t Available zolpidem 10 mg tablet TAKE 1 TABLET BY MOUTH AT BEDTIME NEEDED FOR INSOMNIA FOR 10 DAYS. active Not Available Not Available No t Available albuterol sulfate HFA 90 mcg/actuati on aerosol inhaler Inhale 2 puffs every 4 hours by inhalation route. 2023 active Not Available Not Available Not Avai lable Vitals Date Recorded Body height Heart rate Body mass index (BMI) Body weight Oxygen saturation Oxygen saturation in Arterial blood by Pulse oximetry Systolic And Diastolic Provider Name and Address Organization Details Last Updated DateTime 158.75 cm 80 /min 16.6 kg/m2 05925.5 g 98 % 98 % 130/60 mm[Hg] Donis Richmondjohnny, [address], [place], [address], [place] [facility] 10:56:46 Social History Question Answer Notes LastModified by [employer] Details LastModified Time Tobacco Smoking Status Never Smoker Donis Humphreys, [address], [place], [address], [facility] - [facility] 05/06/2024 10:59:24 What Is Your Level Of Caffeine Consumption? Moderate Information not available 05/06/2024 What Type Of Diet Are You Following? VEGETARIAN She Has Been Adding More Protein Such As Fish But Avoids Dairy Information not available 05/06/2024 What Is The Highest Grade Or Level Of School You Have Completed Or The Highest Degree You Have Received? [id number] Information not available 05/06/2024 How Many Children Do You Have? 3 Information not available 05/06/2024 What Is Your Relationship Status? Information not available 05/06/2024 Are You Sexually Active? No Information not available 05/06/2024 Are You Currently In School? No Information not available 05/06/2024 Sex: Unknown Functional Status Question Answer Note LastModified by [email or web address] ink Details LastModified Time Do you use any illicit or recreational drugs? No no pot Information not available 05/06/2024 What is your level of alcohol consumption? 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 Occasional one hour of day treadmill Information not available 05/06/2024 Mental Status Question Answer Note LastModified by [employer] Details LastModified Time Do you feel stressed (tense, restless, nervous, or anxious, or unable to sleep at night)? [id number] some anxiety Information not available 05/06/2024 Family History Relationship Description Onset Age of this Age Resolved Age Notes LastModified by Organization Details LastModified Time Father Hypertensive disorder Not available 05/06 10:58:41 Medical History No medical history recorded. Gynecological HistoryNo gynecological history recorded. Obstetrics History GPAL:G 0 P 0 0 0 0 Past Encounters Encounter ID Performer Location Encounter Start Date Encounter Closed Date Diagnosis/Indication Diagnosis SNOMED-CT Code Diagnosis ICD10 Code Diagnosis IMO Codes Diagnosis Note [id number] Donis Humphreys DO MAIN OFFICE [address] [place] [address] 05/06/2024 10:40:05 05/19/2024 12:31:19 Allergic rhinitis 57875311 J30.9 Pt reports PND and runny noseHas carpet in her roomleaves the window openHas h/o asthma and COPDTakes OTC psudophed as neededIncr ease fluid intakeUse zyrtec and flonase as needed to avoid fluid build upTreat IBD to decrease environmen monica allergyAvo id carpets in the bed roomUse air purifier and dust around the bed weeklyUse hypoallerg enic pillow Restless l egs syndrome [id number] G25.81 Pt has PPO plan she will keep her PCP as he continues to write Zolpidem for sleep for herHas had h/o anorexia and her current BMI is 16She has a mostly vegetarian diet and has been diagnosed B12 and iron defLast CBC was in November and showed hct of 40 and MCV of 98pt takes OTC iron and SL z57Cktw check labs and RTOAdvised to increase her protein intake specially at dinner time. Anorexia nervosa [id number] 8 F50.00 Never had hospitaliz ation for anorexiaBM I 16Can't remember when was the last time she had DEXAPt to get labs and RTOPt to increase her calorie intake with increase in form protein and fat Chronic ob structive pulmonary disease 80106167 J44.9 Has been diagnosed with COPD But has not had flair in yearsHas no inh at this timeNo cough or SOB Depressive disorder 6618 9007 F32.A Has [facility] She Reports h/o bipolar d/oPt is on Zolpidem 10mg by her PCPExplain ed to pt that this not the right med and she will benefit from a mood stabilizer Will check labs as above and RTO Health Concerns Section Related Observation LastModified by Organization Detai ls LastModified Time None Recorded Concern Status LastModified by Organization Details LastModified Time None Recorded Advance Directives Directive None Recorded Payers Insurance Date Sequence Insurance Name Policy Number Policy Sahni Covered Member ID Sahni Member ID Guarantor Name 04/08/2025 2 [place]ICARE [place]: [employer] Candice Barraza [id number] Candice Barraza 04/08/2025 1 [employer] [id number] Candice Barraza [id number] Candice Barraza Notes Date Note Type Note Provider Name and Address Organization Details Recorded Time 4 text/html ROS as noted in the HPI Increase fluid intakeUse zyrtec and flonase as needed to avoid fluid build upTreat IBD to decrease environmental allergyAvoid carpets in the bed roomUse air purifier and dust around the bed weeklyUse hypoallergenic pillow.Pt has PPO plan she will keep her PCP as he continues to write Zolpidem for sleep for herHas had h/o anorexia and her current BMI is 16She has a mostly vegetarian diet and has been diagnosed B12 and iron defLast CBC was in November and showed hct of 40 and MCV of 98pt takes OTC iron and SL k59Rued check labs and RTOAdvised to increase her protein intake specially at dinner time.Has had h/o post- psychosis2 hospitalizationsMother had chronic depressionShe Reports h/o bipolar d/oPt is on Zolpidem 10mg by her PCPExplained to pt that this not the right med and she will benefit from a mood stabilizerWill check labs as above and RTO Donis Humphreys DO [address], [place], [address], [place] [facility] 05/06/2024 12:01:17 OBGyn Episode No OBEpisode recorded.
--- OUTSIDE RECORDS SUMMARY | 2025-06-01 07:46 | XMS_ITS ---
Author Name [facility] Organization Unknown Care Team Organization Name Specialty Phone Email Start Date End Da te [facility] NULL Primary Care 06/05/2022 03/16/2024 [facility] 05/01/2022
--- OUTSIDE RECORDS SUMMARY | 2025-06-01 07:46 | XMS_ITS | Patient Health Record ---
Author Organization [facility] Address [address] [address] [place] [address] Support Name Relationship Address Phone Candice Barraza Guarantor Unknown [phone] Reason For Referral No Information Plan Of Treatment No Information Insurance Providers Payer Name Payer Address Payer Phone Subscriber Number Group Number Insured Name Patient Relationship to Insured Coverage Start Date Coverage End Date [employer] [address] [place] [address] [id number] Candice Barraza Self - patient is the insured 5
--- OUTSIDE RECORDS SUMMARY | 2025-06-01 07:47 | XMS_ITS | Patient Health Record ---
Author Organization [facility] Address [address] [place] [address] Care Team Providers Care Checking Clerk Name Role Phone Trenton Perez Jesus Manuel [phone] Reason For Referral No Information Plan Of Treatment No Information
[2025-06-01 10:16] LABS: MANUAL DIFF FLAG NO
[2025-06-01 10:37] LABS: Appearance Urine Clear; Glucose Urine UA Negative (Negative); PH 7.0 (5.0-9.0); Specific Gravity - Urine 1.010 (1.005-1.025)
[2025-06-01 10:42] LABS: Hematocrit 38.4 % (37.0-47.0); Hemoglobin 12.3 g/dl (12.0-16.0); Imm Gran Abs Auto 0.01 X10*3/uL (0.00-0.03); Imm Gran Pct Auto 0.1 % (0.0-0.4); Lymphocytes Absolute Auto 2.5 X10*3/uL (1.2-4.9); Mean Corpuscular HGB Conc 32.0 g/dl (31.0-35.0); Mean Corpuscular Hemoglobin 31.7 pg (27.0-33.0); Mean Corpuscular Volume 99.0 fL (80.0-98.0); NRBC Abs Auto 0.000 X10*3/uL (0.0-0.012); NRBC Pct Auto 0.0 /100WBC (0.0-0.2); Platelet Count 256 X10*3/uL (160-400); Red Blood Count 3.88 X10*6/uL (4.20-5.50); White Blood Count 7.5 X10*3/uL (4.8-10.8)
[2025-06-01 11:12] LABS: Alanine Aminotransferase 17 U/L (0-31); Albumin Level 4.4 g/dL (3.5-5.0); Alkaline Phosphatase 72 U/L (39-117); Anion Gap 11 (12-20); Aspartate Amino Transferase 29 U/L (5-31); Blood Urea Nitrogen 19 mg/dL (9-16); Calcium 8.7 mg/dL (8.4-10.2); Carbon Dioxide 26 mmol/L (22-29); Chloride 104 mmol/L (96-108); Cholesterol 217 mg/dL (<200); Estimated Glomerular Filt Rate > 60; HDL Cholesterol 88 mg/dL (>40); Potassium 4.0 mmol/L (3.3-5.1); Sodium 137 mmol/L (135-145); Total Protein 7.0 g/dL (6.5-8.0); Triglycerides 53 mg/dL (<150)
[2025-06-01 11:37] LABS: Folate 14.8 ng/mL (> or = 4.0); Vitamin B12 > 2000 pg/mL (200-900)
== END 2025-06-01 07:45 | disposition home or self-care (01) ==
LOC: HO.HMGCLDS 07:44
PROVIDERS: PCP Internal Medicine; Visit Provider Internal Medicine
DX: E53.8 Deficiency of other specified B group vitamins (principal); R30.0 Dysuria; E78.00 Pure hypercholesterolemia, unspecified; D64.9 Anemia, unspecified; E55.9 Vitamin D deficiency, unspecified
CPT/HCPCS: 36415; 80053; 80061; 81003; 82306; 82607; 82746; 84443; 85025

== ENCOUNTER 2025-06-08 13:24 | Outpatient (AMB) | payer MEDICARE, SELFPAY ==
[2025-06-08 13:28] VITALS: BP 110/84; PULSE 69; O2SAT 93; BMI 17.5
--- NOTE | 2025-06-08 13:28 | A.OFFPC_ITS ---
Vital Signs 06/08/25 13:28 Height 5 ft 4 in Weight 102 lb BMI 17.5 BP 110/84 Blood Pressure Location Lt brachial Position Sitting Pulse 69 Pulse Source Pulse Oximeter Pulse Oximetry (%) 93 Oxygen Delivery Method Room Air Intake Visit Reasons: 6 Months Director Of Religious Activities Required: No Accompanied by: Self / Same As Patient Allergies Seasonal Allergies Allergy (Mild, Verified 06/08/25 14:07) Unknown Medication List - Last Reconciled 06/08/25 by Ascencion Stiles MD albuterol sulfate 90 mcg/actuation 2 puffs inhalation Q6H PRN aqkkagt-jvlynnfedbreh-mubyewjn 250-250-65 mg (Excedrin Migraine) 2 tabs PO Q6H PRN fluticasone propionate 50 mcg/actuation 2 sprays intranasal DAILY PRN melatonin 12 mg PO BEDTIME PRN meloxicam 15 mg PO DAILY PRN Tobacco use date assessed: 06/08/25 Fall risk assessment: No Falls in past year Last assessed Fall Risk: 06/08/25 Dental Screening Dental Screen Date: 06/08/25 Did you have a dental visit in the last 12 months?: Yes Did you have a dental problem in the last 6 months where you did not have access to dental care?: No Was dental information given to patient?: Patient has dentist HPI 6 Months HPI Details Patient comes in today for her follow-up visit States that she feels okay She denies any headaches or dizziness Denies any chest pains, no increased shortness of breath No nausea/vomiting, no abdominal pain No change in bowel habits noted She had her follow up labs done last week - to discuss her results [facility] Medical History COPD (chronic obstructive pulmonary disease) Insomnia Allergic rhinitis GERD (gastroesophageal reflux disease) History of skin cancer History of mouth cancer Hx of ovarian cyst Surgical History History of colonoscopy (~05/07/08) Status post surgical removal of malignant neoplasm of skin Hx of ovarian cystectomy Family History Father HTN (hypertension) Sister HTN (hypertension) Social History Housing: Apartment Alcohol intake: never Patient Tobacco Use Status: Never used Tobacco e-Cigarette/Vaping Use: Never Used Second Hand Smoke Exposure: Yes service: No Current occupational status: retired Cognitive needs: No Hearing needs: No Vision needs: No Female Reproductive History Menstrual Age of Menarche: 13 Questionnaire PHQ-9 Over the last 2 weeks, how often have you been bothered by any of the following problems? 1. Little interest or pleasure in doing things: not at all 2. Feeling down, depressed, or hopeless: not at all 3. Trouble falling or staying asleep, or sleeping too much: several days 4. Feeling tired or having little energy: not at all 5. Poor appetite or overeating: not at all 6. Feeling bad about yourself - or that you are a failure or have let yourself or your family down: not at all 7. Trouble concentrating on things, such as reading the newspaper or watching television: not at all 8. Moving or speaking so slowly that other people could have noticed. Or the opposite - being so fidgety or restless that you have been moving around a lot more than usual: not at all 9. Thoughts that you would be better off or of hurting yourself in some way: not at all Total score: 1 Depression Screening Interpretation: Negative Depression Screening Done: Yes 92367 - PHQ-9 Billing: Yes Source: Developed by Drs. Trenton Gomez, Frances Tang, Sergo Colby and colleagues, with an educational margareth from [employer]. Thrive Questionnaire Date Thrive assessed: 06/08/25 I am a: Patient What is your living situation today?: I have a steady place to live Within the past 12 months, did the food you bought not last and you didn't have the money to get more?: Never true Within the past 12 months, did you worry whether your food would run out before you got money to buy more?: Never true Do you have trouble paying for medicines?: No Do you have trouble getting transportation to medical appointments?: No Do you have trouble paying your heating and electricity bill?: No Do you have trouble taking care of your child, family member or friend?: No Do you have trouble with day-to-day activities such as bathing, preparing meals, shopping, managing finances, etc.?: No Are you currently unemployed and looking for a job?: No Are you interested in more education?: No Please select the resources that you would like help with: None Currently or been in a relationship where the following occur: No concerns reported THRIVE Score: 0 AUDIT C Alcohol Use Questionnaire (AUDIT-C) 1. How often do you have a drink containing alcohol?: Never 3. How often do you have six or more drinks on one occasion?: Never Total Score: 0 Score Reviewed/Action Taken: Yes CARINA-7 AMB Questionnaire CARINA-7 Date CARINA - 7 assessed: 06/08/25 Feeling nervous, anxious, or on edge: 0 = Not at all Not being able to stop or control worryin = Not at all Worrying too much about different things: 0 = Not at all Trouble relaxin = Not at all Being so restless that it is hard to sit still: 0 = Not at all Becoming easily annoyed or irritable: 0 = Not at all Feeling afraid as if something awful might happen: 0 = Not at all Total CARINA-7 score (0-4 normal; 5-9 mild; 10-14 moderate; 15-21 severe): 0 Source: Developed by Drs. Trenton Gomez, Frances Tang, Sergo Colby and colleagues, with an educational margareth from [employer]. Review of Systems Const Denies chills, Reports difficulty sleeping (especially since insurance denied coverage of all of her sleep aids), Denies fatigue, Denies fever(s) and Denies headache(s) ENT Denies dysphagia, Denies dizziness, Denies otalgia, Denies headache(s), Denies neck pain, Denies odynophagia and Denies sore throat Card Denies chest pain, Denies palpitations and Denies dyspnea Resp Denies chest congestion, Denies cough and Denies dyspnea GI Denies abdominal pain, Denies constipation, Denies dysphagia, Denies heartburn, Denies diarrhea, Denies nausea, Denies odynophagia and Denies vomiting Denies difficulty voiding, Denies nocturia and Denies dysuria Musc Denies back pain and Denies neck pain Skin/Breast Denies rash Neuro Denies dizziness and Denies headache(s) Endo Denies fatigue and Denies palpitations Physical exam (Primary Care) Vital Signs: Last Vital Signs Pulse 69 06/08/25 13:28 BP 110/84 06/08/25 13:28 Pulse Ox 93 06/08/25 13:28 Oxygen Delivery Method Room Air 06/08/25 13:28 BMI result Body Mass Index 17.5 Tobacco/Smoking Status: Tobacco use Status Tobacco use date assessed 06/08/25 06/08/25 13:32 Patient Tobacco Use Status Never used Tobacco 06/08/25 13:32 e-Cigarette/Vaping Use Never Used 06/08/25 13:32 PHQ-9: PHQ-9 Score PHQ-9: Total score 1 06/08/25 14:10 Depression Screening Interpretation: Negative Thrive Assessment: Date of Thrive Assessment Date Thrive assessed 06/08/25 06/08/25 13:32 Currently or been in a relationship where the following occur: No concerns reported Const General: no acute distress and alert HENMT Ears: TM's normal bilaterally and EAC's normal Throat: Yes posterior oropharynx normal and Yes tonsils normal Neck Neck: Yes supple and No lymphadenopathy Thyroid: Thyroid normal Resp Auscultation: clear to auscultation bilaterally, no rales and no wheezes Cardio Rate: regular rate Rhythm: regular rhythm Heart sounds: Murmur heart sound present systolic blowing, soft and at the apex GI Palpation (GI): Soft to palpation and nontender Auscultation: normal bowel sounds General: Yes no CVA tenderness Back/Spine/Pelvis Back: no CVA tenderness Thoracic/Lumbar Spine: No lumbar spinal tenderness Skin Rashes: no rashes Extrem General: Yes no clubbing, cyanosis or edema Results Reviewed Results Reviewed: Laboratory Tests 06/01/25 07:49 WBC 7.5 Hgb 12.3 Hct 38.4 Plt Count 256 Sodium 137 Potassium 4.0 Creatinine 0.68 Estimated GFR > 60 Fasting Glucose 86 Calcium 8.7 D AST 29 ALT 17 Triglycerides 53 Cholesterol 217 H LDL Cholesterol, Calc 119 H HDL Cholesterol 88 Vitamin B12 > 2000 H 25-OH Vitamin D Total 67.4 TSH 3.31 Ur Specific [place] 1.010 Urine Protein Negative Urine Glucose (UA) Negative Urine Blood Negative Urine Nitrite Negative Ur Leukocyte Esterase Negative Coding Level of Care Code Est Pt Level 4 (59182) Diagnoses Chronic obstructive pulmonary disease, unspecified COPD type J44.9 COPD type: unspecified COPD Nonintractable headache, unspecified chronicity pattern, unspecified headache type R51.9 Headache type: unspecified Headache chronicity pattern: unspecified pattern Intractability: not intractable Cardiac murmur R01.1 Allergic rhinitis, unspecified seasonality, unspecified trigger J30.9 Allergic rhinitis trigger: unspecified Allergic rhinitis seasonality: unspecified Vitamin B12 deficiency (dietary) anemia D51.8 Gastroesophageal reflux disease without esophagitis K21.9 Esophagitis presence: without esophagitis Insomnia, unspecified type G47.00 Insomnia type: unspecified Additional Codes PHQ-9 - 03583 - PHQ-9 Billing: Yes ([id number]) Assessment & Plan Assessment & Plan (1) COPD (chronic obstructive pulmonary disease): Code(s): J44.9 - Chronic obstructive pulmonary disease, unspecified Category: Medical Qualifiers: COPD type: unspecified COPD Qualified Code(s): J44.9 - Chronic obstructive pulmonary disease, unspecified Plan: Controlled/stable Chest x-rays done in October 2021 revealed hyperinflated lungs without acute process PFTs done on 02/13/2022 for further evaluation revealed findings of moderate COPD with a restrictive pattern Continue Albuterol HFA 1 to 2 inhalations every 6 hours PRN Patient's activity / exercise tolerance appear to be appropriate for her age and she reports that she only has to use her inhaler as needed and not everyday; she still does not appear to need any controller Rx at this time (2) Headache: Code(s): R51.9 - Headache, unspecified Category: Medical Qualifiers: Headache type: unspecified Headache chronicity pattern: unspecified pattern Intractability: not intractable Qualified Code(s): R51.9 - Headache, unspecified Plan: Stable - these may likely have been migraine headaches States that she is just taking OTC Excedrin PRN with (+) relief of her headaches at this time Reinforced avoidance of potential migraine triggers Will consider prophylactic Tx if her headaches start to occur more often or progress (3) Cardiac murmur: Code(s): R01.1 - Cardiac murmur, unspecified Category: Medical Plan: Patient is currently completely asymptomatic from a cardiac standpoint Echocardiogram done last year on 01/01/2024 revealed normal LV ejection fraction of 65-70%. mild mitral regurgitation and ytmq-[id number]-agxfmvgq tricuspid regurgitation with upper limits of normal RV systolic pressure and no gross pericardial effusion She is advised that her cardiac murmur is mostly due to her mitral and tricuspid valve regurgitation and since they are both mild and she has no acute symptoms, no further intervention is indicated at this time We will continue to monitor her periodically; she is advised to inform us if she starts experiencing any unexplained increased shortness of breath or dyspnea on exertion at any time (4) Allergic rhinitis: Code(s): J30.9 - Allergic rhinitis, unspecified Category: Medical Qualifiers: Allergic rhinitis trigger: unspecified Allergic rhinitis seasonality: unspecified Qualified Code(s): J30.9 - Allergic rhinitis, unspecified Plan: Patient uses OTC Fluticasone nasal spray PRN although she feels that lately, it is not helping much She is still not interested in allergy testing or referral to junior underwriter at present States that eliminating dairy products from her diet recently seems to have helped a lot with her allergies May also take OTC Loratadine 10 mg QD PRN for additional symptom relief (5) Vitamin B12 deficiency (dietary) anemia: Comment: Patient is 90% vegetarian - eats chicken and turkey but no red meats Code(s): D51.8 - Other vitamin B12 deficiency anemias Category: Medical Plan: (+) Hx of anemia and B12 deficiency and she is currently still taking OTC Vitamin B12 tablets daily - patient is a vegetarian Her repeat CBC done last week came back normal (6) GERD (gastroesophageal reflux disease): Code(s): K21.9 - Gastro-esophageal reflux disease without esophagitis Category: Medical Qualifiers: Esophagitis presence: without esophagitis Qualified Code(s): K21.9 - Gastro-esophageal reflux disease without esophagitis Plan: Reinforced dietary restrictions in GERD She takes OTC Gaviscon TID with meals with relief and states that she is happy with continuing current Rx at this time To consider referral to GI and EGD if symptoms persist or worsen (7) Insomnia: Code(s): G47.00 - Insomnia, unspecified Category: Medical Qualifiers: Insomnia type: unspecified Qualified Code(s): G47.00 - Insomnia, unspecified Plan: Sleep hygiene reinforced Continue Zolpidem 10 mg Q HS PRN Advised that she can also continue taking OTC Melatonin with her Zolpidem as needed Plan Follow up in 6 months Medications: New trazodone 50 mg PO BEDTIME PRN 30 tabs 1RF sleep 30 days
--- OUTSIDE RECORDS SUMMARY | 2025-06-08 15:03 | XMS_ITS | Patient Health Record ---
Author Organization [facility] Address [address] [place] [id number] Care Team Providers Care Cabin Outfitter Name Role Phone Trenton Perez Jesus Manuel [phone] Reason For Referral No Information Plan Of Treatment No Information
--- OUTSIDE RECORDS SUMMARY | 2025-06-08 15:03 | XMS_ITS | Data Portability ---
Author Organization [place] [facility], MAIN OFFICE Address [address] [place] [address] Assessment Encounter Date Assessment Date Assessment LastModified [...] or plasma 2023 [facility], [address] [place], [address], 10:06:33 folate, serum 2023 [facility], [address] [place], [address], 10:06:31 iron + total iron-eligio ng capacity (TIBC), serum 2023 024 [facility], [address] [place], [address], 10:06:31 retic count, blood 2023 024 [facility], [address] [place], [address], 10:06:34 vitamin B12, serum 2023 024 [facility], [address] [place], [address], 10:06:33 vitamin D, 25-hydroxy , total, serum 2023 [facility], [address] [place], [address], 10:06:32 CBC w/ auto diff 2023 024 [facility], [address] [place], [address], 10:06:29 CMP, serum or plasma 2023 [facility], [address] [place], [address], 10:06:30 TSH + free T4, serum 2023 [facility], [address] [place], [address], 10:06:27 Referral None recorded. Procedures None recorded. Surgeries None recorded. Imaging None recorded. Medication Orders albuterol sulfate HFA 90 mcg/actuat ion aerosol inhaler 2023 [id number], [address] [place], [address], 11:31:45 Patient TargetsNo targets recorded. Patient InstructionsNo [...] DateTime 158.75 cm 80 /min 16.6 kg/m2 70253.5 g 98 % 98 % 130/60 mm[Hg] Donis Richmondjohnny, [address], [place], [address], [place] [facility] 10:56:46 Social History Question Answer Notes LastModified by [employer] Details LastModified Time Tobacco Smoking Status Never Smoker Donis Humphreys, [address], [place], [address], [facility] - [facility] 05/06/2024 10:59:24 What Is Your Level Of Caffeine Consumption? Moderate Information not available 05/06/2024 What Type Of Diet Are You Following? VEGETARIAN She Has Been Adding More Protein Such As Fish But Avoids Dairy Information not available 05/06/2024 What Is The Highest Grade Or Level Of School You Have Completed Or The Highest Degree You Have Received? [id number] Information not available 05/06/2024 How Many Children Do You Have? 3 Information not available 05/06/2024 What Is Your Relationship Status? Information not available 05/06/2024 Are You Sexually Active? No Information not available 05/06/2024 Are You Currently In School? No Information not available 05/06/2024 Sex: Unknown Functional Status Question Answer Note LastModified by [email or web address] Details LastModified Time Do you use any [...] Status Question Answer Note LastModified by [employer] Details LastModified Time Do you feel stressed (tense, restless, nervous, or anxious, or unable to sleep at night)? [id number] some anxiety Information not available 05/06/2024 Family [...] ICD10 Code Diagnosis IMO Codes Diagnosis Note [id number] Donis Humphreys DO MAIN OFFICE [address] [place] [address] 05/06/2024 10:40:05 05/19/2024 12:31:19 Allergic rhinitis [id number] J30.9 Pt reports PND and runny noseHas carpet in her roomleaves the window openHas h/o asthma and COPDTakes OTC psudophed as neededIncr ease fluid intakeUse zyrtec and flonase as needed to avoid fluid build upTreat IBD to decrease environmen monica allergyAvo id carpets in the bed roomUse air purifier and dust around the bed weeklyUse hypoallerg enic pillow Restless l egs syndrome [id number] G25.81 Pt has PPO plan she will keep her PCP as he continues to write Zolpidem for sleep for herHas had h/o anorexia and her current BMI is 16She has a mostly vegetarian diet and has been diagnosed B12 and iron defLast CBC was in November and showed hct of 40 and MCV of 98pt takes OTC iron and SL [id number] check labs and RTOAdvised to increase her protein intake specially at dinner time. Anorexia nervosa [id number] F50.00 Never had hospitaliz ation for anorexiaBM I 16Can't remember when was the last time she had DEXAPt to get labs and RTOPt to increase her calorie intake with increase in form protein and fat Chronic ob structive pulmonary disease [id number] J44.9 Has been diagnosed with COPD But has not had flair in yearsHas no inh at this timeNo cough or SOB Depressive disorder [id number] F32.A [facility] She Reports h/o [...] ID Guarantor Name 04/08/2025 2 MEDICARE B-[place]: [employer] Candice Barraza [id number] Candice Barraza 04/08/2025 1 [employer] [id number] Candice Barraza [id number] Candice Barraza Notes Date Note Type Note [...] of 98pt takes OTC iron and SL z68Oatf check labs and RTOAdvised to increase her protein intake specially at dinner time.Has had h/o post- psychosis2 hospitalizationsMother had chronic depressionShe Reports h/o bipolar d/oPt is on Zolpidem 10mg by her PCPExplained to pt that this not the right med and she will benefit from a mood stabilizerWill check labs as above and RTO Donis Humphreys DO [address], [place], [address], [place] [facility] 05/06/2024 12:01:17 OBGyn Episode No OBEpisode recorded.
--- OUTSIDE RECORDS SUMMARY | 2025-06-08 15:03 | XMS_ITS | Patient Health Record ---
Author Organization [facility] Address [address] [address] [place] [address] Support Name Relationship Address Phone Candice Barraza Guarantor Unknown [phone] Reason For Referral No Information Plan Of Treatment No Information Insurance Providers Payer Name Payer Address Payer Phone Subscriber Number Group Number Insured Name Patient Relationship to Insured Coverage Start Date Coverage End Date [employer] [address] [place] [address] [id number] Candice Barraza Self - patient is the insured 5
== END 2025-06-08 14:25 | disposition home or self-care (01) ==
LOC: HO.HMCH 13:25
PROVIDERS: PCP Internal Medicine; Visit Provider Internal Medicine
DX: J44.9 Chronic obstructive pulmonary disease, unspecified (principal); R51.9 Headache, unspecified; R01.1 Cardiac murmur, unspecified; J30.9 Allergic rhinitis, unspecified; D51.8 Other vitamin B12 deficiency anemias; K21.9 Gastro-esophageal reflux disease without esophagitis; G47.00 Insomnia, unspecified

== ENCOUNTER → 2025-06-08 13:24 | Outpatient (BNVA) | payer MEDICARE, SELFPAY | PROVIDERS: PCP Internal Medicine; Visit Provider Internal Medicine | DX: D51.8 Other vitamin B12 deficiency anemias (principal); J44.9 Chronic obstructive pulmonary disease, unspecified; R51.9 Headache, unspecified; R01.1 Cardiac murmur, unspecified; J30.9 Allergic rhinitis, unspecified; K21.9 Gastro-esophageal reflux disease without esophagitis; G47.00 Insomnia, unspecified | CPT/HCPCS: 96127; 99212 ==